=== PATIENT | male | born 1970 | race Caucasian/White ===

== ENCOUNTER 2018-07-07 20:10 | Observation (INO) | payer OTHER ==
[2018-07-07 20:21] VITALS: BMI 35.0
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
[2018-07-07] MEDS ORDERED: ASPIRIN 81 MG CHEWABLE TABLETS PO ONE (21:08)
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
[2018-07-07] MEDS ORDERED: ASPIRIN 81 MG CHEWABLE TABLETS ONE (22:11)
[2018-07-07 22:18] LABS: BASO % 0.4 % (0-2.0); EOS % 2.7 % (0-4.5); HEMATOCRIT 43.9 % (35.4-49); HEMOGLOBIN 15.1 GM/dL (11.7-16.9); LYMPH % 20.5 % (8-40); MCH 31.4 pg (25.7-33.7); MCHC 34.4 g/dl (32.0-35.9); MEAN CELL VOLUME 91.3 fl (80-96); MEAN PLT VOLUME 9.5 fl (7.5-11.1); MONO % 10.1 % (3.8-10.2); NEUT % 66.3 % (42.8-82.8); PLATELET COUNT 255 K/MM3 (134-434); RBC 4.81 M/mm3 (4.00-5.60); WHITE BLOOD COUNT 9.9 K/mm3 (4.0-10.0)
[2018-07-07 22:29] LABS: PROTHROMBIN TIME (PATIENT) 11.8 SEC (9.7-13.0)
[2018-07-07 22:31] LABS: ACTIVATED PTT 32.9 SECONDS (25.2-36.5)
[2018-07-07] MEDS ORDERED: ALBUTEROL SO4 2.5/IPRATROPIUM 0.5 INH SOL 3 ML VIAL.NEB. NEB ONE (22:33)
--- NOTE | 2018-07-07 22:38 | PDOC ---
*Physical Exam - Vital Signs Last Vital Signs Temp Pulse Resp BP Pulse Ox 98.3 F 99 H 18 165/93 99 07/07/18 20:35 07/07/18 20:35 07/07/18 20:35 07/07/18 20:35 07/07/18 20:35 ED Treatment Course - LABORATORY CBC & Chemistry Diagram: 07/07/18 21:40 07/07/18 21:40 - ADDITIONAL ORDERS Additional order review: Laboratory Results 07/07/18 21:40 PT with INR 11.80 INR 1.00 PTT (Actin FS) 32.9 07/07/18 21:40 RBC 4.81 MCV 91.3 MCHC 34.4 RDW 14.0 MPV 9.5 Neutrophils % 66.3 Lymphocytes % 20.5 Monocytes % 10.1 Eosinophils % 2.7 Basophils % 0.4 - Medications Given in the ED: ED Medications Discontinued Medications Generic Name Dose Route Start Last Admin Trade Name Freq PRN Reason Stop Dose Admin Aspirin 162 mg 07/07/18 21:08 07/07/18 22:15 Asa - PO 07/07/18 21:09 162 mg ONCE ONE Administration Medical Decision Making - Medical Decision Making 07/07/18 22:36 48 year old male with PMH HTN, asthma, cigarette dependence presented to ED for chest pain since 1000 today. Initial Vital Signs Temp Pulse Resp BP Pulse Ox 98.3 F 99 H 18 165/93 99 07/07/18 20:16 07/07/18 20:16 07/07/18 20:16 07/07/18 20:16 07/07/18 20:16 Pt arrived afebrile, borderline tachycardic, no tachypnea, mildly hypertensive, no hypoxia on room air. EKG performed at 2016: rate 96, regular rhythm, normal axis, incomplete RBBB, QTC 452, no acute ST changes. Medications ordered: ASA, duonebs CBC WBC 9.9 K/mm3 (4.0-10.0) 07/07/18 21:40 RBC 4.81 M/mm3 (4.00-5.60) 07/07/18 21:40 Hgb 15.1 GM/dL (11.7-16.9) 07/07/18 21:40 Hct 43.9 % (35.4-49) 07/07/18 21:40 MCV 91.3 fl (80-96) 07/07/18 21:40 MCH 31.4 pg (25.7-33.7) 07/07/18 21:40 MCHC 34.4 g/dl (32.0-35.9) 07/07/18 21:40 RDW 14.0 % (11.9-15.9) 07/07/18 21:40 Plt Count 255 K/MM3 (134-434) 07/07/18 21:40 MPV 9.5 fl (7.5-11.1) 07/07/18 21:40 Absolute Neuts (auto) 6.6 K/mm3 (1.5-8.0) 07/07/18 21:40 Neutrophils % 66.3 % (42.8-82.8) 07/07/18 21:40 Lymphocytes % 20.5 % (8-40) 07/07/18 21:40 Monocytes % 10.1 % (3.8-10.2) 07/07/18 21:40 Eosinophils % 2.7 % (0-4.5) 07/07/18 21:40 Basophils % 0.4 % (0-2.0) 07/07/18 21:40 Nucleated RBC % 0 % (0-0) 07/07/18 21:40 No leukocytosis. No anemia. Pending CMP, troponin, repeat troponin/EKG. 07/07/18 22:43 CMP Sodium 138 mmol/L (136-145) 07/07/18 21:40 Potassium 4.4 mmol/L (3.5-5.1) 07/07/18 21:40 Chloride 105 mmol/L (98-107) 07/07/18 21:40 Carbon Dioxide 27 mmol/L (21-32) 07/07/18 21:40 Anion Gap 6 MMOL/L (8-16) L 07/07/18 21:40 BUN 20 mg/dL (7-18) H 07/07/18 21:40 Creatinine 1.0 mg/dL (0.55-1.3) 07/07/18 21:40 Creat Clearance w eGFR > 60 (>60) 07/07/18 21:40 Random Glucose 89 mg/dL (74-106) 07/07/18 21:40 Calcium 8.6 mg/dL (8.5-10.1) 07/07/18 21:40 Total Bilirubin 0.3 mg/dL (0.2-1) 07/07/18 21:40 AST 16 U/L (15-37) 07/07/18 21:40 ALT 22 U/L (13-61) 07/07/18 21:40 Alkaline Phosphatase 88 U/L (45-117) 07/07/18 21:40 Creatine Kinase 189 IU/L (26-308) 07/07/18 21:40 Troponin I < 0.02 ng/ml (0.00-0.05) 07/07/18 21:40 Total Protein 7.0 g/dl (6.4-8.2) 07/07/18 21:40 Albumin 3.7 g/dl (3.4-5.0) 07/07/18 21:40 Initial troponin normal. No electrolyte abnormalities. No SRINATH. No transaminitis. 07/07/18 23:19 CXR: no infiltrate. no pneumothorax. no cardiomegaly. sharp costophrenic angles. 07/07/18 23:58 Pt reported chest pain improved from 6/10 to 4/10. 07/08/18 02:06 Second troponin negative. *DC/Admit/Observation/Transfer Diagnosis at time of Disposition: Chest pain - Discharge Dispostion Condition at time of disposition: Stable Decision to Admit order: Yes - Referrals - Patient Instructions - Post Discharge Activity
[2018-07-07 22:41] LABS: ALBUMIN 3.7 g/dl (3.4-5.0); ALK PHOS 88 U/L (45-117); ANION GAP 6 MMOL/L (8-16); BILIRUBIN,TOTAL 0.3 mg/dL (0.2-1); BLOOD UREA NITROGEN 20 mg/dL (7-18); CALCIUM 8.6 mg/dL (8.5-10.1); CHLORIDE 105 mmol/L (98-107); CO2 27 mmol/L (21-32); GLUCOSE,RANDOM 89 mg/dL (74-106); POTASSIUM 4.4 mmol/L (3.5-5.1); SGOT/AST 16 U/L (15-37); SGPT/ALT 22 U/L (13-61); SODIUM 138 mmol/L (136-145)
[2018-07-08] MEDS ORDERED: amLODIPine BESYLATE 5 MG TABLET (FP) PO ONE (01:17)
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
[2018-07-08] MEDS ORDERED: HEPARIN NA (PORCINE) 5,000 UNITS/ML 1ML VIAL ONE ×3 (01:35→14:40)
[2018-07-08] MEDS ORDERED: amLODIPine BESYLATE 5 MG TABLET (FP) ONE ×2 (02:16→11:01)
[2018-07-08] MEDS ORDERED: ACETAMINOPHEN 325 MG TABLET (FP) ONE (03:16)
--- NOTE | 2018-07-08 03:40 | PN ---
Teaching Attending Note Name of Resident: Mckay Vela ATTENDING PHYSICIAN STATEMENT I saw and evaluated the patient. I reviewed the resident's note and discussed the case with the resident. I agree with the resident's findings and plan as documented. SUBJECTIVE: Seen and examined; please see resident note for further historical details. This is a 48 y/o male with PMH untreated HTN, obesity (BMI 35) presenting to the ER with a CC of chest pain. He had a similar episode 2 days ago. It is waxing and waning and typical in nature; no history of prior cardiac workup. Doesn't follow regularly with a doctor. In the ER he was found to have normal troponin, CBC, unremarkable BMP. EKG was not specific for any jennifer ischemic pattern. He did have an elevated BP in the ER. He has no other complaints. Will place on observation on telemetry to r/o ACS. ER calculated HEART score to be moderate risk. He did take ASA at home. 10 sys ROS done and negative aside from HPI PMH and PSH reviewed FH asked and noncontributory Socially he uses 1PPD, smokes cannabis, drinks occasionally but not daily. Does have some support. Independent in ambulation, etc. and could do a treadmill stress. Medication list reviewed with resident OBJECTIVE: VS, labs, imaging reviewed NAD, AAO, resting in bed RRR s1/2 no mgr Abdomen obese; NT ND +BS Lungs CTAB with sym exp CN2-12 wnl, no fnd Normal mood, appropriate behavior Labs show negative troponin, unremarkable CBC, BMP EKG shows what appears to be a new incomplete RBBB with overall unremarkable ST- T segments; NSR, intervals reviewed Imaging reviewed; unremarkable ASSESSMENT AND PLAN: Mr. Cr is a 48 y/o male presenting with chest pain; he is moderate risk and would have appreciable pretest probability for stress testing. 1) Chest Pain in Adult -Moderately suspicious story, multiple risk factors including active tobacco user. Will trend troponin x3, monitor on tele, obtain exercise stress test, and if the test is abnormal plan to consult cardiology. Starting him on [id number] PO QD for primary prevention -Obtain A1c, TSH, Lipids to fully risk stratify 2) Uncontrolled HTN -Placing on Amlodipine 5 and continuing QD in accordance with GDMT. 3) Tobacco Abuse -Switchboard Troubleshooter prior to DC 4) Cannabis Abuse -Switchboard Troubleshooter prior to DC 5) Obesity (BMI 35.1) -Switchboard Troubleshooter regarding weight loss prior to DC. 6) RBBB (incomplete) FENA -KVO when NPO -PRN replete -Stress test protocol -OOBTC until post stress Full Code
[2018-07-08 05:44] LABS: BASO % 0.4 % (0-2.0); EOS % 2.6 % (0-4.5); HEMATOCRIT 44.3 % (35.4-49); HEMOGLOBIN 14.6 GM/dL (11.7-16.9); LYMPH % 22.7 % (8-40); MCHC 32.9 g/dl (32.0-35.9); MEAN CELL VOLUME 91.3 fl (80-96); NEUT % 64.3 % (42.8-82.8); PLATELET COUNT 221 K/MM3 (134-434); RBC 4.85 M/mm3 (4.00-5.60); RDW 13.7 % (11.9-15.9); WHITE BLOOD COUNT 9.2 K/mm3 (4.0-10.0)
[2018-07-08 06:26] LABS: ANION GAP 7 MMOL/L (8-16); BLOOD UREA NITROGEN 17 mg/dL (7-18); CALCIUM 8.4 mg/dL (8.5-10.1); CHLORIDE 106 mmol/L (98-107); CHOLESTEROL 149 mg/dL (50-200); CO2 26 mmol/L (21-32); CREATININE 0.9 mg/dL (0.55-1.3); GLUCOSE,RANDOM 92 mg/dL (74-106); HDL CHOLESTEROL 46 mg/dL (40-60); MAGNESIUM 2.2 mg/dL (1.8-2.4); PHOSPHOROUS 3.4 mg/dL (2.5-4.9); POTASSIUM 3.7 mmol/L (3.5-5.1); SODIUM 139 mmol/L (136-145); TRIGLYCERIDES 106 mg/dL (0-150)
[2018-07-08] MEDS: HEPARIN NA (PORCINE) 5,000 UNITS/ML 1ML VIAL SQ SCH ×2 (06:40→14:42)
[2018-07-08 08:55] LABS: INR 1.08 (0.83-1.09); PROTHROMBIN TIME (PATIENT) 12.7 SEC (9.7-13.0)
[2018-07-08 08:57] LABS: ACTIVATED PTT 31.5 SECONDS (25.2-36.5)
--- NOTE | 2018-07-08 09:45 | EKG ---
Test Reason : Blood Pressure : / mmHG Vent. Rate : 082 BPM Atrial Rate : 082 BPM P-R Int : 154 ms QRS Dur : 112 ms QT Int : 398 ms P-R-T Axes : 055 035 033 degrees QTc Int : 464 ms NORMAL SINUS RHYTHM INCOMPLETE RIGHT BUNDLE BRANCH BLOCK BORDERLINE ECG WHEN COMPARED WITH ECG OF 07-JUL-2018 23:00, NO SIGNIFICANT CHANGE WAS FOUND Confirmed by PRICILLA RODRIGUEZ MD ([id number]) on 07/08/2018 9:45:13 AM Referred By: Confirmed By:PRICILLA RODRIGUEZ MD
--- NOTE | 2018-07-08 09:50 | EKG ---
Test Reason : Blood Pressure : / mmHG Vent. Rate : 076 BPM Atrial Rate : 076 BPM P-R Int : 156 ms QRS Dur : 108 ms QT Int : 402 ms P-R-T Axes : 034 -03 014 degrees QTc Int : 452 ms NORMAL SINUS RHYTHM INCOMPLETE RIGHT BUNDLE BRANCH BLOCK BORDERLINE ECG WHEN COMPARED WITH ECG OF 03-JUN-2014 13:32, NO SIGNIFICANT CHANGE WAS FOUND Confirmed by PRICILLA RODRIGUEZ MD ([id number]) on 07/08/2018 9:50:13 AM Referred By: Confirmed By:PRICILLA RODRIGUEZ MD
--- NOTE | 2018-07-08 09:50 | EKG ---
Test Reason : Blood Pressure : / mmHG Vent. Rate : 075 BPM Atrial Rate : 075 BPM P-R Int : 154 ms QRS Dur : 116 ms QT Int : 410 ms P-R-T Axes : 053 007 010 degrees QTc Int : 457 ms NORMAL SINUS RHYTHM INCOMPLETE RIGHT BUNDLE BRANCH BLOCK BORDERLINE ECG WHEN COMPARED WITH ECG OF 08-JUL-2018 01:41, NO SIGNIFICANT CHANGE WAS FOUND Confirmed by JENNIFER GAGNON, PRICILLA ([id number]) on 07/08/2018 9:49:46 AM Referred By: JESS LOPEZ Confirmed By:PRICILLA RODRIGUEZ MD
[2018-07-08] MEDS ORDERED: amLODIPine BESYLATE 5 MG TABLET (FP) PO SCH (10:00)
[2018-07-08] MEDS ORDERED: ASPIRIN 81 MG CHEWABLE TABLETS PO SCH (10:00)
[2018-07-08] MEDS ORDERED: ASPIRIN 81 MG CHEWABLE TABLETS ONE (11:01)
[2018-07-08 12:09] LABS: COCAINE, UR NEGATIVE ng/ml (CUTOFF=300); METHADONE, UR NEGATIVE ng/ml (CUTOFF=300); OPIATES, URI NEGATIVE ng/ml (CUTOFF=300); PHENCYCLIDINE,URINE NEGATIVE ng/ml (CUTOFF=25); URINE AMPHETAMINES NEGATIVE ng/ml (CUTOFF=500); URINE BARBITURATES NEGATIVE ng/ml (CUTOFF=200); URINE BENZODIAZEPINES NEGATIVE ng/ml (CUTOFF=200)
--- NOTE | 2018-07-08 14:12 | ECHO ---
Name: WALI SCHILLING Exam:Adult Echocardiogram Study Date: 07/08/2018 10:43 AM Age: 48 yrs Reason For Study: LVEF Height: 74 in Weight: 273 lb BSA: 2.5 m2 MMode/2D Measurements & Calculations IVSd: 0.93 cm Ao root diam: 3.5 cm LVIDd: 6.0 cm LA dimension: 3.3 cm LVIDs: 3.4 cm LVPWd: 0.88 cm EDV(Teich): 182.1 ml ESV(Teich): 48.1 ml Doppler Measurements & Calculations MV E max robert: 92.2 cm/sec TR max robert: 215.8 cm/sec MV A max robert: 110.6 cm/sec TR max P.6 mmHg MV E/A: 0.83 MV dec time: 0.18 sec Med Peak E' Robert: 7.3 cm/sec PI Vmax: 123.5 cm/sec Med E/e': 12.6 Lat Peak E' Robert: 11.0 cm/sec Lat E/e': 8.4 Procedure A two-dimensional transthoracic echocardiogram with color flow and Doppler was performed. The study w as technically difficult with many images being suboptimal in quality. Left Ventricle The left ventricle is mildly dilated. The left ventricle is not well visualized. The left ventricular ejection fraction is normal. E/A reversal consistent with but not diagnostic of poor LV compliance. Regional w all motion abnormalities cannot be excluded due to limited visualization. Right Ventricle The right ventricle is normal in size and function. Atria Normal left and right atrial size and function. Mitral Valve There is mild mitral valve thickening. There is no mitral valve stenosis. There is trace mitral regur gitation. Tricuspid Valve There is mild tricuspid valve thickening. There is no tricuspid stenosis. There is moderate tricuspid regurgitation. Right ventricular systolic pressure is normal. Aortic Valve The aortic valve is normal in structure and function. No hemodynamically significant valvular aortic stenosis. No aortic regurgitation is present. Pulmonic Valve The pulmonic valve is not well visualized. Great Vessels The aortic root is normal size. Pericardium/Pleura There is no pericardial effusion. Interpretation Summary The left ventricle is mildly dilated. The left ventricular ejection fraction is normal. There is moderate tricuspid regurgitation. The study was technically difficult with many images being suboptimal in quality. Regional wall motion abnormalities cannot be excluded due to limited visualization. The left ventricle is not well visualized. E/A reversal consistent with but not diagnostic of poor LV compliance There is trace mitral regurgitation. Right ventricular systolic pressure is normal. MD Andreas Ramos 07/08/2018 02:12 PM
--- NOTE | 2018-07-08 14:32 | TRE ---
Protocol Name : ANUPAM Max Work Load (METS*10) : 105 Time In Exercise Phase : 00:09:12 Max. Systolic BP : 178 mmHg Max Diastolic BP : 88 mmHg Max Heart Rate : 148 BPM Max Predicted Heart Rate : 171 BPM Attending Physician : DR. RODRIGUEZ Reason For Termination : Target Heart Rate Achieved Reason for Test : ELAL CAD Stress Protocol : ANUPAM Rest HR : 76 BPM PeakEx METs : 10.5 METS Recovery ECG Response (OLD) : Diagnosis : baseline ekg -nsr incomplete rbb at pek exercise no diagnostic st t wave changes no arrhythmias , no ischemic symptoms. Negative stress test. Confirmed by JENNIFER GAGNON, PRICILLA ([id number]) on 07/08/2018 2:31:45 PM
[2018-07-08 14:39] VITALS: BP 151/105; PULSE 97; TEMP 97.6
--- NOTE | 2018-07-08 15:19 | PN ---
Teaching Attending Note Name of Resident: Brandon Orr ATTENDING PHYSICIAN STATEMENT I saw and evaluated the patient. I reviewed the resident's note and discussed the case with the resident. I agree with the resident's findings and plan as documented. SUBJECTIVE: Mr Cr is without complaint today. Says chest pain has resolved. No sob or n/v. Asking if he can go home OBJECTIVE: Gen: nad Pulm: ctab w/o w/r/r CV: rrr w/o m/r/g Abd: +bs, s/nt/nd Ext: no c/c/e ASSESSMENT AND PLAN: -chest pain resolved -EKG unchanged from last night, no signs of ACS -cardiac enzymes x3 negative -stress test normal -ECHO showing minor wall thickening and some tricuspid regurg but no signs of wall motion abnormality -will start HCTZ for blood pressure control -safe for discharge home Problem List - Problems (1) HTN (hypertension) Code(s): I10 - ESSENTIAL (PRIMARY) HYPERTENSION (2) Chest pain Code(s): R07.9 - CHEST PAIN, UNSPECIFIED
--- NOTE | 2018-07-08 15:26 | DS ---
Physical Exam: SUBJECTIVE: Patient seen and examined at bedside. No new complaints. No overnight events. His chest pain has completely resolved. Feels well overall. Eager to go home. Denies CP,CASANOVA,SOB, palpitations, abdominal pain, nausea or vomiting. OBJECTIVE: Vital Signs Period Temp Pulse Resp BP Sys/Ibanez Pulse Ox Last 24 Hr 97.5 F-98.4 F 71-99 16-18 141-165/81-105 97-100 PHYSICAL EXAM GENERAL: A&Ox3, NAD HEAD: NC/AT EYES: PERRLA, EOMI EARS, NOSE, THROAT: MMM NECK: Normal range of motion, supple without lymphadenopathy, JVD, or masses. LUNGS: CTA b/l HEART: RRR no m/r/g ABDOMEN: +bs, soft, NT, ND, obese, 8cm longitudinal surgical scar at midline LOWER EXTREMITIES: 2+ pulses, warm, well-perfused. No calf tenderness. No peripheral edema. LABS Laboratory Results - last 24 hr 07/07/18 07/07/18 07/07/18 21:40 21:40 21:40 WBC 9.9 RBC 4.81 Hgb 15.1 Hct 43.9 MCV 91.3 MCH 31.4 MCHC 34.4 RDW 14.0 Plt Count 255 MPV 9.5 Absolute Neuts (auto) 6.6 Neutrophils % 66.3 Lymphocytes % 20.5 Monocytes % 10.1 Eosinophils % 2.7 Basophils % 0.4 Nucleated RBC % 0 PT with INR 11.80 INR 1.00 PTT (Actin FS) 32.9 Sodium 138 Potassium 4.4 Chloride 105 Carbon Dioxide 27 Anion Gap 6 L BUN 20 H Creatinine 1.0 Creat Clearance w eGFR > 60 Random Glucose 89 Hemoglobin A1c % Calcium 8.6 Phosphorus Magnesium Total Bilirubin 0.3 AST 16 ALT 22 Alkaline Phosphatase 88 Creatine Kinase 189 Creatine Kinase Index 1.0 CK-MB (CK-2) 2.0 Troponin I < 0.02 Total Protein 7.0 Albumin 3.7 Triglycerides Cholesterol Total LDL Cholesterol HDL Cholesterol TSH Opiates Screen Methadone Screen Barbiturate Screen Phencyclidine Screen Ur Amphetamines Screen MDMA (Ecstasy) Screen Benzodiazepines Screen Cocaine Screen U Marijuana (THC) Screen Blood Type Antibody Screen 07/07/18 07/08/18 07/08/18 21:40 01:17 05:20 WBC RBC Hgb Hct MCV MCH MCHC RDW Plt Count MPV Absolute Neuts (auto) Neutrophils % Lymphocytes % Monocytes % Eosinophils % Basophils % Nucleated RBC % PT with INR INR PTT (Actin FS) Sodium Potassium Chloride Carbon Dioxide Anion Gap BUN Creatinine Creat Clearance w eGFR Random Glucose Hemoglobin A1c % Calcium Phosphorus Magnesium Total Bilirubin AST ALT Alkaline Phosphatase Creatine Kinase Creatine Kinase Index CK-MB (CK-2) Troponin I < 0.02 < 0.02 Total Protein Albumin Triglycerides Cholesterol Total LDL Cholesterol HDL Cholesterol TSH Opiates Screen Methadone Screen Barbiturate Screen Phencyclidine Screen Ur Amphetamines Screen MDMA (Ecstasy) Screen Benzodiazepines Screen Cocaine Screen U Marijuana (THC) Screen Blood Type O POSITIVE Antibody Screen Negative 07/08/18 07/08/18 07/08/18 05:20 05:20 05:20 WBC 9.2 RBC 4.85 Hgb 14.6 Hct 44.3 MCV 91.3 MCH 30.0 MCHC 32.9 RDW 13.7 Plt Count 221 MPV 9.0 Absolute Neuts (auto) 5.9 Neutrophils % 64.3 Lymphocytes % 22.7 Monocytes % 10.0 Eosinophils % 2.6 Basophils % 0.4 Nucleated RBC % 0 PT with INR INR PTT (Actin FS) Sodium 139 Potassium 3.7 Chloride 106 Carbon Dioxide 26 Anion Gap 7 L BUN 17 Creatinine 0.9 Creat Clearance w eGFR > 60 Random Glucose 92 Hemoglobin A1c % Calcium 8.4 L Phosphorus 3.4 Magnesium 2.2 Total Bilirubin AST ALT Alkaline Phosphatase Creatine Kinase Creatine Kinase Index CK-MB (CK-2) Troponin I Total Protein Albumin Triglycerides 106 Cancelled Cholesterol 149 Cancelled Total LDL Cholesterol 89 Cancelled HDL Cholesterol 46 Cancelled TSH 1.92 Opiates Screen Methadone Screen Barbiturate Screen Phencyclidine Screen Ur Amphetamines Screen MDMA (Ecstasy) Screen Benzodiazepines Screen Cocaine Screen U Marijuana (THC) Screen Blood Type Antibody Screen 07/08/18 07/08/18 07/08/18 08:10 08:10 08:10 WBC RBC Hgb Hct MCV MCH MCHC RDW Plt Count MPV Absolute Neuts (auto) Neutrophils % Lymphocytes % Monocytes % Eosinophils % Basophils % Nucleated RBC % PT with INR 12.70 INR 1.08 PTT (Actin FS) 31.5 Sodium Potassium Chloride Carbon Dioxide Anion Gap BUN Creatinine Creat Clearance w eGFR Random Glucose Hemoglobin A1c % 5.9 Calcium Phosphorus Magnesium Total Bilirubin AST ALT Alkaline Phosphatase Creatine Kinase 191 Creatine Kinase Index 0.7 CK-MB (CK-2) 1.4 Troponin I < 0.02 Total Protein Albumin Triglycerides Cholesterol Total LDL Cholesterol HDL Cholesterol TSH Opiates Screen Methadone Screen Barbiturate Screen Phencyclidine Screen Ur Amphetamines Screen MDMA (Ecstasy) Screen Benzodiazepines Screen Cocaine Screen U Marijuana (THC) Screen Blood Type Antibody Screen 07/08/18 10:19 WBC RBC Hgb Hct MCV MCH MCHC RDW Plt Count MPV Absolute Neuts (auto) Neutrophils % Lymphocytes % Monocytes % Eosinophils % Basophils % Nucleated RBC % PT with INR INR PTT (Actin FS) Sodium Potassium Chloride Carbon Dioxide Anion Gap BUN Creatinine Creat Clearance w eGFR Random Glucose Hemoglobin A1c % Calcium Phosphorus Magnesium Total Bilirubin AST ALT Alkaline Phosphatase Creatine Kinase Creatine Kinase Index CK-MB (CK-2) Troponin I Total Protein Albumin Triglycerides Cholesterol Total LDL Cholesterol HDL Cholesterol TSH Opiates Screen Negative Methadone Screen Negative Barbiturate Screen Negative Phencyclidine Screen Negative Ur Amphetamines Screen Negative MDMA (Ecstasy) Screen Negative Benzodiazepines Screen Negative Cocaine Screen Negative U Marijuana (THC) Screen Positive A* Blood Type Antibody Screen STRESS TEST: baseline ekg -nsr incomplete rbb at peak exercise no diagnostic st t wave changes no arrhythmias , no ischemic symptoms. Negative stress test. HOSPITAL COURSE: 48 y/o male with PMHx untreated HTN, obesity (BMI 35) presented to the ER with a CC of chest pain. He was placed on observation with continues cardiac monitoring. Troponin I was negative on 3 separate occasions. Lipid panel, TSH and HgbA1C done all WNL. Patient was sent for exercise stress test which was negative as mentioned above. Echo was done and showed normal LV function with mod TR. In terms of his blood pressure he will be started on HCTZ 12.5mg. He is instructed to follow up with his primary doctor in one week. He is stable for discharge home . Date of Admission:07/08/18 Date of Discharge: 07/08/18 Minutes to complete discharge: 33 Discharge Summary Reason For Visit: CHEST PAIN Current Active Problems Chest pain (Acute) HTN (hypertension) (Acute) Condition: Stable - Instructions Diet, Activity, Other Instructions: You have been seen and treated for high blood pressure and chest pain. Your stress test and blood test were negative for any possible blockage. You will be started on a new medication for blood pressure control; hydrochlorothiazide 12.5 mg, one tablet taken daily. You can resume a heart healthy diet (DASH). You are encouraged to lose weight with diet and lifestyle modifications. Try to reduce the amount of salt in your diet to 2 grams daily. Increase your activity as tolerated. Please make an appointment to see your primary doctor Dr. Pedro in one week. If you experience increased/continued chest pain, fevers, or chills please return to ER immediately. Referrals: Sultan Pedro MD [Non Staff, Medical] - Disposition: HOME - Home Medications Comprehensive Discharge Medication List: Ambulatory Orders Albuterol Sulfate Inhaler - [Ventolin Hfa Inhaler -] 1 puff IH PRN 07/07/18 This patient is new to me today: Yes Date on this admission: 07/08/18 Emergency Visit: Yes ED Registration Date: 07/08/18 Care time: The patient presented to the Emergency Department on the above date and was hospitalized for further evaluation of their emergent condition. Critical Care patient: No - Discharge Referral Referred to [facility] No
--- NOTE | 2018-07-12 12:32 | EKG ---
Test Reason : Blood Pressure : / mmHG Vent. Rate : 096 BPM Atrial Rate : 096 BPM P-R Int : 144 ms QRS Dur : 106 ms QT Int : 358 ms P-R-T Axes : 030 -07 023 degrees QTc Int : 452 ms NORMAL SINUS RHYTHM INCOMPLETE RIGHT BUNDLE BRANCH BLOCK BORDERLINE ECG WHEN COMPARED WITH ECG OF 03-JUN-2014 13:32, NO SIGNIFICANT CHANGE WAS FOUND Confirmed by INDIGO TATE MD ([id number]) on 07/12/2018 12:32:16 PM Referred By: Confirmed By:INDIGO TATE MD
== END 2018-07-08 16:07 | disposition home or self-care (01) ==
LOC: JER 20:10 → JERBED 07-08 01:24
PROVIDERS: ADMIT Internal Medicine; ATTEND Internal Medicine
PROC: 3E013GC Introduction of Other Therapeutic Substance into Subcutaneous Tissue, Percutaneous Approach (ICD-10-PCS; principal; 2018-07-08)
DX: R07.9 Chest pain, unspecified (principal); I10 Essential (primary) hypertension; F17.210 Nicotine dependence, cigarettes, uncomplicated; F12.10 Cannabis abuse, uncomplicated; E66.9 Obesity, unspecified; Z68.35 Body mass index [BMI] 35.0-35.9, adult; I45.10 Unspecified right bundle-branch block; Z87.09 Personal history of other diseases of the respiratory system
CPT/HCPCS: 36415; 71046-TC-FY; 80048; 80053; 80061; 80307; 82550; 82553; 83036; 83721; 83735; 84100; 84443; 84484; 85025; 85610; 85730; 86850; 86900; 86901; 93005; 93010; 93017; 93018; 93306-TC; 96372; 99285-25; G0378; J1644

== ENCOUNTER 2018-07-29 20:39 | Emergency (ER) | payer OTHER ==
[2018-07-29] MEDS ORDERED: FAMOTIDINE 20 MG/50 ML IVPB 20 MG/50 ML MG IVPB ONE ×2 (21:16→21:43)
[2018-07-29] MEDS ORDERED: methylPREDNISolone NA SUCC 125 MG/2 ML VIAL IVPUSH ONE (21:16)
--- NOTE | 2018-07-29 21:16 | PDOC ---
Rapid Medical Evaluation Time Seen by Provider: 07/29/18 21:14 Medical Evaluation: Allergies Allergy/AdvReac Type Severity Reaction Status Date / Time No Known Drug Allergies Allergy Verified 07/07/18 20:21 07/29/18 21:14 I have performed a brief in-person evaluation of this patient. The patient presents with a chief complaint of: facial swelling x 5 days- started HCTZ 2 weeks ago Pertinent physical exam findings: No stridor. No drooling. Speaking full sentences. Hoarseness noted. I have ordered the following: pepcid, benadryl, solumedrol The patient will proceed to the ED for further evaluation. Discharge Disposition - Diagnosis Facial swelling - Referrals - Patient Instructions - Post Discharge Activity
[2018-07-29 21:24] VITALS: TEMP 98; BMI 77.0
[2018-07-29] MEDS ORDERED: methylPREDNISolone NA SUCC 125 MG/2 ML VIAL ONE ×2 (21:43)
--- NOTE | 2018-07-29 21:46 | PDOC ---
History of Present Illness - General Chief Complaint: Allergic Reaction Stated Complaint: ALLERGIC REACTION Time Seen by Provider: 07/29/18 21:14 - History of Present Illness Initial Comments: 07/29/18 21:44 48 yo M with h/o HTN, asthma, obesity, who p/w facial swelling and redness. Patient reports diffuse facial redness, and swelling beginning (). Reports increased swelling and redness, with diffuse rash on posterior neck, face, abdomen. Has attempted topical Diphenhydramine and warm compresses on face with absent relief. Denies dysphagia, drooling, neck stiffness, eye swelling, vision change, cough, wheezing. Recently started HCTZ x 2 weeks ago. Denies contact exposures to new detergents, lotions, emoilents, soaps, clothing , bedding. Patient denies N/V, F,C, CP, SOB, urinary complaints, abdominal pain, diarrhea, constipation, lightheadedness, weakness, sensory changes. PMHx: as noted above ROS: as noted SHx: Denies IVDA, + Tobacco, THC use. Allergies:HCTZ Past History - Past Medical History Allergies/Adverse Reactions: Allergies Allergy/AdvReac Type Severity Reaction Status Date / Time No Known Drug Allergies Allergy Verified 07/07/18 20:21 Home Medications: Ambulatory Orders Albuterol Sulfate Inhaler - [Ventolin HFA Inhaler -] 1 puff IH PRN 07/07/18 Hydrochlorothiazide [Hctz -] 12.5 mg PO DAILY #30 cap 07/08/18 Prednisone [Prednisone 50 MG TABLETS] 50 mg PO DAILY #5 tablet 07/30/18 Ranitidine [Zantac -] 150 mg PO BID #14 tablet 07/30/18 Anemia: No Asthma: Yes Cancer: No Cardiac Disorders: No CVA: No COPD: No CHF: No Dementia: No Diabetes: No GI Disorders: No 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) HTN: Yes Hypercholesterolemia: No Liver Disease: No Seizures: No Thyroid Disease: No - Immunization History Immunization Up to Date: No - Suicide/Smoking/Psychosocial Hx Smoking History: Current every day smoker Have you smoked in the past 12 months: Yes Number of Cigarettes Smoked Daily: 5 If you are a former smoker, when did you quit?: t-30 Information on smoking cessation initiated: No 'Breaking Loose' booklet given: 06/03/14 Hx Alcohol Use: Yes Drug/Substance Use Hx: Yes (Derik) Substance Use Type: None Hx Substance Use Treatment: No Review of Systems - Review of Systems Comments:: 07/29/18 21:45 GENERAL/CONSTITUTIONAL: No fever or chills. No weakness. HEAD, EYES, EARS, NOSE AND THROAT: No change in vision. No ear pain or discharge. No sore throat. CARDIOVASCULAR: No chest pain or shortness of breath RESPIRATORY: No cough, wheezing, or hemoptysis. GASTROINTESTINAL: No nausea, vomiting, diarrhea or constipation. GENITOURINARY: No dysuria, frequency, or change in urination. MUSCULOSKELETAL: No joint or muscle swelling or pain. No neck or back pain. SKIN: + Rash, facial redness/swelling NEUROLOGIC: No headache, vertigo, loss of consciousness, or change in strength/ sensation. ENDOCRINE: No increased thirst. No abnormal weight change HEMATOLOGIC/LYMPHATIC: No anemia, easy bleeding, or history of blood clots. ALLERGIC/IMMUNOLOGIC: No hives or skin allergy. *Physical Exam - Vital Signs Last Vital Signs Temp Pulse Resp BP Pulse Ox 98 F 91 H 20 167/114 H 100 07/29/18 21:21 07/29/18 21:21 07/29/18 21:21 07/29/18 21:21 07/29/18 21:21 - Physical Exam Comments: 07/29/18 21:45 GENERAL: Awake, alert, and fully oriented, in no acute distress HEAD: + Facial erythema, warmth, ttp, and urticaria, with Zone II neck swelling extending from mandible to laryngeal cartilage, with dry, yellow crusted, scaly , lesions on inferior face. No signs of trauma, normocephalic, atraumatic EYES: PERRLA, EOMI, sclera anicteric, conjunctiva clear ENT: Auricles normal inspection, hearing grossly normal, nares patent, oropharynx clear without exudates. Moist mucosa NECK: Normal ROM, supple, no lymphadenopathy, JVD, or masses LUNGS: No distress, speaks full sentences, clear to auscultation bilaterally HEART: Regular rate and rhythm, normal S1 and S2, no murmurs, rubs or gallops, peripheral pulses normal and equal bilaterally. ABDOMEN: Soft, nontender, normoactive bowel sounds. No guarding, no rebound. No masses. NEg CVA ttp. EXTREMITIES : Normal inspection, Normal range of motion, no edema. No clubbing or cyanosis. NEUROLOGICAL: Cranial nerves II through XII grossly intact. Normal speech, normal gait, no focal sensorimotor deficits SKIN: Warm, Dry, with diffuse urticaria on face, trunk, neck, abdomen. Moderate Sedation - Procedure Monitoring Vital Signs: Procedure Monitoring Vital Signs Temperature 98 F 07/29/18 21:21 Pulse Rate 91 H 07/29/18 21:21 Respiratory Rate 20 07/29/18 21:21 Blood Pressure 167/114 H 07/29/18 21:21 O2 Sat by Pulse Oximetry (%) 100 07/29/18 21:21 ED Treatment Course - LABORATORY CBC & Chemistry Diagram: 07/30/18 00:47 07/30/18 00:47 Medical Decision Making - Medical Decision Making 07/29/18 22:09 48 yo M with h/o HTN, obesity, asthma who p/w facial swelling and redness. BP 167/114, HR 91, vitals otherwise wnl, AF. + Facial erythema, and urticaria, with Zone II neck swelling extending from mandible to laryngeal cartilage. No edema in floor of mouth. Will consider acute allergic reaction vs. facial cellulits, vs. ross angina. No evidence of anaphylaxis. Absent stridor, wheezing, cough, abdominal pain, diarrhea, hypotension, syncope. Patient arrives from [facility] after receiving Diphenhydramine, Methylprednisilone, Famotidine. ED Course: 07/29/18 22:15 CBC,CMP,LA, BCx 07/30/18 01:59 CBC,CMP: Unremarkable 07/30/18 02:12 Patient facial swelling mildly improved. VSS/wnl, denies resp difficulty, mucosal swelling, stridor/wheezing Sent Ranitidine, Prednisone to pharmacy Advised to f/u with PMD and dermatology Stable for d/c with return precautions. *DC/Admit/Observation/Transfer Diagnosis at time of Disposition: Facial swelling - Prescriptions Prescriptions: Prednisone [Prednisone 50 MG TABLETS] 50 mg PO DAILY #5 tablet Ranitidine [Zantac -] 150 mg PO BID #14 tablet - Referrals Referrals: ON STAFF,NOT [Primary Care Provider] - Ana Lilia Kay MD [Staff Physician] - - Patient Instructions Printed Discharge Instructions: DI for Adverse Drug Reaction -- Allergic Additional Instructions: Please return to the emergency department with any new or worsening symptoms or concerns. Please follow up with your primary care physician and dermatology within 72 hours. Please take Ranitidine two times a day, and Prednisone daily for 5 days. - Post Discharge Activity - Attestations Physician Attestion: 07/29/18 21:45 I attest to the information provided in this note.
[2018-07-30 01:24] LABS: BASO % 0.1 % (0-2.0); EOS % 2.3 % (0-4.5); HEMATOCRIT 44.5 % (35.4-49); HEMOGLOBIN 15.5 GM/dL (11.7-16.9); LYMPH % 7.3 % (8-40); MCH 31.4 pg (25.7-33.7); MCHC 34.8 g/dl (32.0-35.9); MEAN CELL VOLUME 90.2 fl (80-96); MEAN PLT VOLUME 9.6 fl (7.5-11.1); MONO % 2.4 % (3.8-10.2); NEUT % 87.9 % (42.8-82.8); PLATELET COUNT 249 K/MM3 (134-434); RBC 4.93 M/mm3 (4.00-5.60); WHITE BLOOD COUNT 10.9 K/mm3 (4.0-10.0)
[2018-07-30 01:40] LABS: ALBUMIN 3.8 g/dl (3.4-5.0); ALK PHOS 84 U/L (45-117); ANION GAP 9 MMOL/L (8-16); BILIRUBIN,TOTAL 0.5 mg/dL (0.2-1); BLOOD UREA NITROGEN 17 mg/dL (7-18); CALCIUM 8.4 mg/dL (8.5-10.1); CHLORIDE 105 mmol/L (98-107); CO2 23 mmol/L (21-32); GLUCOSE,RANDOM 136 mg/dL (74-106); POTASSIUM 4.2 mmol/L (3.5-5.1); SGOT/AST 15 U/L (15-37); SGPT/ALT 22 U/L (13-61); SODIUM 137 mmol/L (136-145); TOT PROT 7.1 g/dl (6.4-8.2)
[2018-07-30 02:56] VITALS: BP 162/88; PULSE 88
--- NOTE | 2018-07-30 06:38 | PDOC ---
Attending Attestation - Resident Resident Name: Alcides Segundoson - ED Attending Attestation I have performed the following: I have examined & evaluated the patient, The case was reviewed & discussed with the resident, I agree w/resident's findings & plan, Exceptions are as noted - HPI HPI: 07/30/18 06:34 48yoM presnets w/ facial rash, worstening with topical benadryl use. Started as erythema and itching to chin area and has spread around face and down onto trunk. Area covered by archuleta has become thick with dry and cracking skin, no pus. - Physicial Exam PE: 07/30/18 06:37 NAD post OP WNL, no intraoral swelling, floor of mouth soft, mallampati grade 1 thick, dry, cracked skin to area covered by archuleta. Other areas of face with erythema are not cracking. no stridor, no wheezing. - Medical Decision Making 07/30/18 06:37 48yoM w/ itchy erythematous rash, developing a dry, cracked appearance in area of archuleta after benadryl cream use. - DC benadryl cream - switch to oral benadry and oral steroids - dermatology referral.
== END 2018-07-30 02:56 | disposition home or self-care (01) ==
LOC: JER 20:39
PROC: 3E033GC Introduction of Other Therapeutic Substance into Peripheral Vein, Percutaneous Approach (ICD-10-PCS; principal; 2018-07-29)
DX: R22.0 Localized swelling, mass and lump, head (principal); I10 Essential (primary) hypertension; J45.909 Unspecified asthma, uncomplicated; E66.9 Obesity, unspecified
CPT/HCPCS: 36415; 80053; 83605; 85025; 87040; 99282-25

== ENCOUNTER 2018-11-20 17:42 | Inpatient (IN) | payer OTHER ==
--- NOTE | 2018-11-20 18:01 | PDOC ---
Rapid Medical Evaluation Chief Complaint: Chest Pain Time Seen by Provider: 11/20/18 17:59 Medical Evaluation: Allergies Allergy/AdvReac Type Severity Reaction Status Date / Time No Known Drug Allergies Allergy Verified 07/30/18 02:55 11/20/18 17:59 I have performed a brief in-person evaluation of this patient. The patient presents with a chief complaint of: Chest pain radiating to L arm x several days. No sob, diaphoresis, n/v. Had similar pain in the past when he was dx w/ HTN per pt. Had neg stress test 07/08/[address] [facility]. H/o HTN, smoker Pertinent physical exam findings:Stable and in NAD w/ clear chest/lungs I have ordered the following:ekg/cxr/labs The patient will proceed to the ED for further evaluation. 11/20/18 18:02 Discharge Disposition - Diagnosis Chest pain Qualifiers: Chest pain type: unspecified Qualified Code(s): R07.9 - Chest pain, unspecified - Referrals - Patient Instructions - Post Discharge Activity
[2018-11-20 18:29] LABS: BASO % 0.4 % (0-2.0); EOS % 2.2 % (0-4.5); HEMATOCRIT 44.6 % (35.4-49); LYMPH % 15.2 % (8-40); MCH 30.9 pg (25.7-33.7); MCHC 33.6 g/dl (32.0-35.9); MEAN PLT VOLUME 9.3 fl (7.5-11.1); MONO % 8.3 % (3.8-10.2); NEUT % 73.9 % (42.8-82.8); PLATELET COUNT 242 K/MM3 (134-434); RBC 4.85 M/mm3 (4.00-5.60); WHITE BLOOD COUNT 11.4 K/mm3 (4.0-10.0)
[2018-11-20 19:58] LABS: ALBUMIN 3.9 g/dl (3.4-5.0); ALK PHOS 86 U/L (45-117); ANION GAP 7 MMOL/L (8-16); BILIRUBIN,TOTAL 0.5 mg/dL (0.2-1); BLOOD UREA NITROGEN 18 mg/dL (7-18); CALCIUM 8.7 mg/dL (8.5-10.1); CHLORIDE 107 mmol/L (98-107); CO2 25 mmol/L (21-32); GLUCOSE,RANDOM 100 mg/dL (74-106); POTASSIUM 4.1 mmol/L (3.5-5.1); SGOT/AST 18 U/L (15-37); SGPT/ALT 21 U/L (13-61); SODIUM 139 mmol/L (136-145); TOT PROT 7.2 g/dl (6.4-8.2)
--- NOTE | 2018-11-20 20:32 | PDOC ---
History of Present Illness - General Chief Complaint: Chest Pain Stated Complaint: CHEST PAIN Time Seen by Provider: 11/20/18 17:59 History Source: Patient Exam Limitations: No Limitations - History of Present Illness Initial Comments: 11/20/18 20:19 48 yo M with a hx of HTN and asthma presents to the emergency department with new quality chest pain that began today at 1:30 am. Per the patient, he has had chest pain center sternum with radiation to the left arm for 2 days intermittently. At 1:30 am while at rest, he felt a 7/10, cramp pain center of chest radiation to the left lateral chest and posterior left arm. This pain lasted for 5 minutes and terminated on its own. He had another occurrence today at 4 pm while cooking. It was less severit (4/10) with similar quality and terminated on its own. Denies SOB, nausea, vomiting, diaphoresis. Denies familial cardiac history. Past History - Past Medical History Allergies/Adverse Reactions: Allergies Allergy/AdvReac Type Severity Reaction Status Date / Time No Known Drug Allergies Allergy Verified 07/30/18 02:55 Home Medications: Ambulatory Orders Albuterol Sulfate Inhaler - [Ventolin HFA Inhaler -] 1 puff IH PRN 07/07/18 Hydrochlorothiazide [Hctz -] 12.5 mg PO DAILY #30 cap 07/08/18 Prednisone [Prednisone 50 MG TABLETS] 50 mg PO DAILY #5 tablet 07/30/18 Ranitidine [Zantac -] 150 mg PO BID #14 tablet 07/30/18 Anemia: No Asthma: Yes Cancer: No Cardiac Disorders: No CVA: No COPD: No CHF: No Dementia: No Diabetes: No GI Disorders: No 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) HTN: Yes Hypercholesterolemia: No Liver Disease: No Seizures: No Thyroid Disease: No - Immunization History Immunization Up to Date: No - Suicide/Smoking/Psychosocial Hx Smoking History: Current every day smoker Have you smoked in the past 12 months: Yes Number of Cigarettes Smoked Daily: 5 If you are a former smoker, when did you quit?: t-30 Information on smoking cessation initiated: No 'Breaking Loose' booklet given: 06/03/14 Hx Alcohol Use: No Drug/Substance Use Hx: No Substance Use Type: None Hx Substance Use Treatment: No *Physical Exam - Vital Signs Last Vital Signs Temp Pulse Resp BP Pulse Ox 98.3 F 87 18 155/91 96 11/20/18 17:59 11/20/18 17:59 11/20/18 17:59 11/20/18 17:59 11/20/18 17:59 ED Treatment Course - LABORATORY CBC & Chemistry Diagram: 11/20/18 18:14 11/20/18 18:14 - ADDITIONAL ORDERS Additional order review: Laboratory Results 11/20/18 18:14 Sodium 139 Potassium 4.1 Chloride 107 Carbon Dioxide 25 Anion Gap 7 L BUN 18 Creatinine 1.0 Creat Clearance w eGFR 79.42 Random Glucose 100 Calcium 8.7 Total Bilirubin 0.5 AST 18 ALT 21 Alkaline Phosphatase 86 Creatine Kinase 127 Troponin I < 0.02 Total Protein 7.2 Albumin 3.9 11/20/18 18:14 RBC 4.85 MCV 92.0 MCHC 33.6 RDW 14.0 MPV 9.3 Neutrophils % 73.9 Lymphocytes % 15.2 D Monocytes % 8.3 D Eosinophils % 2.2 Basophils % 0.4 D Medical Decision Making - Medical Decision Making 11/20/18 20:41 48 yo M with a hx of HTN and asthma presents to the emergency department with new quality chest pain that began today at 1:30 am. Per the patient, he has had chest pain center sternum with radiation to the left arm for 2 days intermittently. Initial vitals: Initial Vital Signs Temp Pulse Resp BP Pulse Ox 98.3 F 87 18 155/91 96 11/20/18 17:59 11/20/18 17:59 11/20/18 17:59 11/20/18 17:59 11/20/18 17:59 Work up: EKG: t wave inversion in V1, t wave flattening v2, and t wave upright in avF ( compared to EKG 06/2018). Patients stress test within normal limits. ECHO 2017 shows no wall abnormalities, but limited. Mod TR and Mild MR. LVEF normal. *DC/Admit/Observation/Transfer Diagnosis at time of Disposition: Chest pain Qualifiers: Chest pain type: unspecified Qualified Code(s): R07.9 - Chest pain, unspecified - Referrals - Patient Instructions - Post Discharge Activity
[2018-11-20] MEDS ORDERED: ASPIRIN 81 MG CHEWABLE TABLETS PO ONE (20:39)
[2018-11-20] MEDS ORDERED: NITROGLYCERIN 2% OINTMENT - 1GM PACKET TD ONE ×2 (21:04→21:21)
[2018-11-20] MEDS ORDERED: ASPIRIN 81 MG CHEWABLE TABLETS ONE (21:21)
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
--- NOTE | 2018-11-20 23:27 | PDOC ---
Documentation entered by Adin Alexis SCRIBE, acting as scribe for Curtis Chand MD. Curtis Chand MD: This documentation has been prepared by the Vanesa pierce Nirvannie, SCRIBE, under my direction and personally reviewed by me in its entirety. I confirm that the documentation accurately reflects all work, treatment, procedures, and medical decision making performed by me. Attending Attestation - Resident Resident Name: David Rios - ED Attending Attestation I have performed the following: I have examined & evaluated the patient, The case was reviewed & discussed with the resident, I agree w/resident's findings & plan - HPI HPI: 11/20/18 20:59 Patient is a 48 with past medical history of HTN and asthma who presents with chest pain, crampy in character, lasting for the past 18 hours, intermittent, 7/ 10, radiating to the left arm. He denies associated shortness of breath, diaphoresis, fever, chills, or cough. - Physicial Exam PE: 11/20/18 23:23 Patient is awake and alert, obese, in no distress Normocephalic and atraumatic PERRLA, EOMI CTA No JVD RRR Abdomen soft, nontender No lower extremity edema Nonfocal neurologically - Medical Decision Making 11/20/18 23:24 48-year-old obese male with history of hypertension presents with atraumatic left and substernal chest pain associated with left arm pain and paresthesias that occurred at rest on the day of arrival. Patient reports that the pain is different in quality than previous episodes for which she was admitted and evaluated at this hospital in June 2018. In the ER, patient is asymptomatic and pain free. EKG reveals Inverted T-wave in V1 and T-wave flattening in V2 as well as pseudonormalization in 3 and aVF when compared to an EKG from 2018. Chest x-ray reveals no evidence of cardiomegaly/infiltrate or effusion. First cardiac troponin is within normal limit. Review patient's chart reveals an indeterminate echocardiogram and a negative stress test in 2018. Given the change in patient's chest pain as well as EKG abnormalities in contiguous leads when compared to previous EKG, patient's heart score is noted to be 4. Patient will be placed in observation on telemetry for serial cardiac enzymes.
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
[2018-11-21] MEDS ORDERED: ALBUTEROL SO4 0.083% IH SOL 2.5 MG/3 ML VIAL.NEB. NEB PRN (00:22)
[2018-11-21 03:12] VITALS: BMI 36.8
[2018-11-21] MEDS: HEPARIN NA (PORCINE) 5,000 UNITS/ML 1ML VIAL SQ SCH ×3 (05:49→22:07)
[2018-11-21 07:58] LABS: BASO % 0.3 % (0-2.0); EOS % 2.4 % (0-4.5); HEMATOCRIT 45.1 % (35.4-49); HEMOGLOBIN 15.1 GM/dL (11.7-16.9); LYMPH % 21.2 % (8-40); MCH 31.1 pg (25.7-33.7); MCHC 33.4 g/dl (32.0-35.9); MEAN CELL VOLUME 92.9 fl (80-96); MEAN PLT VOLUME 9.5 fl (7.5-11.1); MONO % 7.6 % (3.8-10.2); NEUT % 68.5 % (42.8-82.8); PLATELET COUNT 223 K/MM3 (134-434); RBC 4.85 M/mm3 (4.00-5.60); RDW 14.2 % (11.9-15.9)
[2018-11-21 08:13] LABS: CHOLESTEROL 163 mg/dL (50-200); HDL CHOLESTEROL 52 mg/dL (40-60); TRIGLYCERIDES 92 mg/dL (0-150)
[2018-11-21 08:23] LABS: ALBUMIN 3.7 g/dl (3.4-5.0); ALK PHOS 76 U/L (45-117); ANION GAP 4 MMOL/L (8-16); BILIRUBIN,TOTAL 0.7 mg/dL (0.2-1); BLOOD UREA NITROGEN 16 mg/dL (7-18); CALCIUM 9.1 mg/dL (8.5-10.1); CHLORIDE 105 mmol/L (98-107); CO2 30 mmol/L (21-32); GLUCOSE,RANDOM 86 mg/dL (74-106); MAGNESIUM 2.4 mg/dL (1.8-2.4); POTASSIUM 4.9 mmol/L (3.5-5.1); SGOT/AST 12 U/L (15-37); SGPT/ALT 19 U/L (13-61); SODIUM 138 mmol/L (136-145); TOT PROT 7.2 g/dl (6.4-8.2)
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
[2018-11-21] MEDS: amLODIPine BESYLATE 5 MG TABLET (FP) PO SCH (10:14)
--- NOTE | 2018-11-21 10:40 | PN ---
Progress Note, Physician Chief Complaint: comfortable, no chest pain - Current Medication List Current Medications: Active Medications Albuterol Sulfate (Ventolin 0.083% Nebulizer Soln -) 1 amp NEB Q6H PRN PRN Reason: ASTHMA Amlodipine Besylate (Norvasc -) 5 mg PO DAILY [facility] Last Admin: 11/21/18 10:14 Dose: 5 mg Heparin Sodium (Porcine) (Heparin -) 5,000 unit SQ TID [facility] Last Admin: 11/21/18 05:49 Dose: 5,000 unit - Objective Vital Signs: Vital Signs Temperature 97.9 F 11/21/18 05:53 Pulse Rate 78 11/21/18 05:53 Respiratory Rate 20 11/21/18 05:53 Blood Pressure 125/79 11/21/18 05:53 O2 Sat by Pulse Oximetry (%) 96 11/21/18 02:40 HEENT: Mm moist, no anemia, NECK: no JVD CHEST: Non tender CTA B/L CVS: S1S2 R no m/g/r ABD: No distention, BS + EXT: No edema feet, no calf tenderness, Pulses = [employer] SUPERVISOR: AOX3 non focal Labs: CBC, BMP 11/21/18 06:20 11/21/18 06:20 Problem List - Problems (1) Chest pain Assessment/Plan: atypical CP, resolved, only risk factor is smoking and HTN, previously evaluated at [place] underwent ETT that was reported normal, trop I X2 normal , LDL 108 cont ASA, add Simvastatin 20 mg,evaluated by cardiology recommended ECHO and NST. Code(s): R07.9 - CHEST PAIN, UNSPECIFIED Qualifiers: Chest pain type: unspecified Qualified Code(s): R07.9 - Chest pain, unspecified (2) HTN (hypertension) Assessment/Plan: cont amlodipine Code(s): I10 - ESSENTIAL (PRIMARY) HYPERTENSION Qualifiers: Hypertension type: unspecified Qualified Code(s): I10 - Essential (primary ) hypertension (3) Needs smoking cessation education Assessment/Plan: Refused Nicotine patch. Code(s): F17.200 - NICOTINE DEPENDENCE, UNSPECIFIED, UNCOMPLICATED
[2018-11-21] MEDS: NICOTINE 14 MG/24 HOURS TOPICAL PATCH TD SCH (13:36)
--- NOTE | 2018-11-21 15:09 | EKG ---
Test Reason : Blood Pressure : / mmHG Vent. Rate : 079 BPM Atrial Rate : 079 BPM P-R Int : 144 ms QRS Dur : 102 ms QT Int : 388 ms P-R-T Axes : 017 -10 -01 degrees QTc Int : 444 ms NORMAL SINUS RHYTHM INCOMPLETE RIGHT BUNDLE BRANCH BLOCK BORDERLINE ECG WHEN COMPARED WITH ECG OF 20-NOV-2018 17:38, INVERTED T WAVES HAVE REPLACED NONSPECIFIC T WAVE ABNORMALITY IN INFERIOR LEADS Confirmed by INDIGO TATE MD ([id number]) on 11/21/2018 3:09:00 PM Referred By: Confirmed By:INDIGO TATE MD
--- NOTE | 2018-11-21 15:10 | EKG ---
Test Reason : Blood Pressure : / mmHG Vent. Rate : 093 BPM Atrial Rate : 093 BPM P-R Int : 148 ms QRS Dur : 110 ms QT Int : 376 ms P-R-T Axes : 053 022 045 degrees QTc Int : 467 ms NORMAL SINUS RHYTHM INCOMPLETE RIGHT BUNDLE BRANCH BLOCK BORDERLINE ECG WHEN COMPARED WITH ECG OF 08-JUL-2018 09:01, NONSPECIFIC T WAVE ABNORMALITY, IMPROVED IN INFERIOR LEADS Confirmed by INDIGO TATE MD ([id number]) on 11/21/2018 3:10:22 PM Referred By: Confirmed By:INDIGO TATE MD
[2018-11-21] MEDS ORDERED: MELATONIN 5 MG TABLETS PO ONE (23:15)
[2018-11-22] MEDS: HEPARIN NA (PORCINE) 5,000 UNITS/ML 1ML VIAL SQ SCH ×3 (06:58→21:07)
--- NOTE | 2018-11-22 07:50 | PN ---
Teaching Attending Note Name of Resident: Shaylee Servin ATTENDING PHYSICIAN STATEMENT I saw and evaluated the patient. I reviewed the resident's note and discussed the case with the resident. I agree with the resident's findings and plan as documented. 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 Problem List - Problems (1) Chest pain Assessment/Plan: atypical CP, resolved, only risk factor is smoking and HTN, previously evaluated at [place] underwent ETT that was reported normal, trop I X2 normal , LDL 108 cont ASA, add Simvastatin 20 mg,evaluated by cardiology recommended ECHO and NST. Code(s): R07.9 - CHEST PAIN, UNSPECIFIED Qualifiers: Chest pain type: unspecified Qualified Code(s): R07.9 - Chest pain, unspecified (2) HTN (hypertension) Assessment/Plan: cont amlodipine Code(s): I10 - ESSENTIAL (PRIMARY) HYPERTENSION Qualifiers: Hypertension type: unspecified Qualified Code(s): I10 - Essential (primary ) hypertension (3) Needs smoking cessation education Assessment/Plan: Patient is on Nicotine Patch Code(s): F17.200 - NICOTINE DEPENDENCE, UNSPECIFIED, UNCOMPLICATED
[2018-11-22 08:13] LABS: BASO % 0.4 % (0-2.0); EOS % 2.4 % (0-4.5); HEMATOCRIT 45.4 % (35.4-49); HEMOGLOBIN 15.3 GM/dL (11.7-16.9); LYMPH % 19.1 % (8-40); MCH 31.1 pg (25.7-33.7); MCHC 33.7 g/dl (32.0-35.9); MEAN CELL VOLUME 92.3 fl (80-96); MEAN PLT VOLUME 9.7 fl (7.5-11.1); MONO % 9.2 % (3.8-10.2); NEUT % 68.9 % (42.8-82.8); PLATELET COUNT 225 K/MM3 (134-434); RBC 4.91 M/mm3 (4.00-5.60); RDW 14.1 % (11.9-15.9); WHITE BLOOD COUNT 10.1 K/mm3 (4.0-10.0)
[2018-11-22 08:23] LABS: ANION GAP 5 MMOL/L (8-16); BLOOD UREA NITROGEN 18 mg/dL (7-18); CALCIUM 8.8 mg/dL (8.5-10.1); CHLORIDE 104 mmol/L (98-107); CHOLESTEROL 162 mg/dL (50-200); CO2 29 mmol/L (21-32); GLUCOSE,RANDOM 89 mg/dL (74-106); HDL CHOLESTEROL 50 mg/dL (40-60); POTASSIUM 4.2 mmol/L (3.5-5.1); SODIUM 139 mmol/L (136-145); TRIGLYCERIDES 110 mg/dL (0-150)
[2018-11-22] MEDS: amLODIPine BESYLATE 5 MG TABLET (FP) PO SCH (09:38)
[2018-11-22] MEDS: NICOTINE 14 MG/24 HOURS TOPICAL PATCH TD SCH (09:38)
--- NOTE | 2018-11-22 11:04 | PN ---
Progress Note, Physician Chief Complaint: no further CP TELE NSR - Current Medication List Current Medications: Active Medications Albuterol Sulfate (Ventolin 0.083% Nebulizer Soln -) 1 amp NEB Q6H PRN PRN Reason: ASTHMA Amlodipine Besylate (Norvasc -) 5 mg PO DAILY [facility] Last Admin: 11/22/18 09:38 Dose: 5 mg Heparin Sodium (Porcine) (Heparin -) 5,000 unit SQ TID [facility] Last Admin: 11/22/18 06:58 Dose: 5,000 unit Nicotine (Nicoderm Patch -) 14 mg TD DAILY [facility] Last Admin: 11/22/18 09:38 Dose: 14 mg - Objective Vital Signs: Vital Signs Temperature 97.9 F 11/22/18 05:00 Pulse Rate 70 11/22/18 05:00 Respiratory Rate 18 11/22/18 05:00 Blood Pressure 127/80 11/22/18 05:00 O2 Sat by Pulse Oximetry (%) 98 11/21/18 21:00 Constitutional: Yes: No Distress, Calm Eyes: Yes: Conjunctiva Clear, EOM Intact HENT: Yes: Atraumatic, Normocephalic Neck: Yes: Trachea Midline Cardiovascular: Yes: Regular Rate and Rhythm Respiratory: Yes: CTA Bilaterally Gastrointestinal: Yes: Soft Edema: No Peripheral Pulses WNL: Yes Neurological: Yes: Alert, Oriented ...Motor Strength: WNL Labs: CBC, BMP 11/22/18 06:30 11/22/18 06:30 Laboratory Tests 11/20/18 11/20/18 11/21/18 18:14 23:20 06:20 WBC 10.0 Hgb Hct 45.1 Plt Count 223 Sodium Potassium Creatinine Troponin I < 0.02 < 0.02 11/21/18 11/22/18 11/22/18 06:20 06:30 06:30 WBC 10.1 H Hgb 15.3 Hct Plt Count 225 Sodium 139 Potassium 4.2 Creatinine 1.0 Troponin I < 0.02 - ....Imaging EKG: Image Reviewed Problem List - Problems (1) Chest pain Code(s): R07.9 - CHEST PAIN, UNSPECIFIED Qualifiers: Chest pain type: unspecified Qualified Code(s): R07.9 - Chest pain, unspecified (2) HTN (hypertension) Code(s): I10 - ESSENTIAL (PRIMARY) HYPERTENSION Qualifiers: Hypertension type: unspecified Qualified Code(s): I10 - Essential (primary ) hypertension Assessment/Plan IMP: 1. Several cardiac risk factors: HTN/ smoking with atypical chest pain 2. Chronic asthma REC: 1. Telemetry 2. Fasting Lipids: LDL 108- diet modification. 3. Echo 4. Exercise MPI on Friday 5. ASA; continue Amlodipine. 6. Counselled on smoking cessation, on patch 7. If stress MPI WNL, plan for d/c home later tomorrow with outpt f/u with PMD.
--- NOTE | 2018-11-22 13:57 | PN ---
Physical Exam: SUBJECTIVE: Patient seen and examined. Offers no complaints. No acute events overnight. OBJECTIVE: Vital Signs Period Temp Pulse Resp BP Sys/Ibanez Pulse Ox Last 24 Hr 97.9 F-98.8 F 70-85 18-20 127-137/80-95 98-98 GENERAL: Awake, alert, and fully oriented, in no acute distress. HEAD: Normal with no signs of trauma. EYES: Pupils equal, round and reactive to light, extraocular movements intact, sclera anicteric, conjunctiva clear. EARS, NOSE, THROAT: oropharynx clear without exudates. Moist mucous membranes. NECK: supple without lymphadenopathy, JVD, or masses. LUNGS: Breath sounds equal, clear to auscultation bilaterally. No wheezes, and no crackles. HEART: Regular rate and rhythm, normal S1 and S2 without murmur, rub or gallop. ABDOMEN: obese , nontender, not distended, normoactive bowel sounds, no guarding , no rebound, no masses. No hepatomegaly or splenomegaly. LOWER EXTREMITIES: 2+ pulses, warm, well-perfused. No peripheral edema. NEUROLOGICAL: Cranial nerves II-XII intact. Normal speech. Laboratory Results - last 24 hr 11/22/18 11/22/18 11/22/18 06:30 06:30 06:30 WBC 10.1 H RBC 4.91 Hgb 15.3 Hct 45.4 MCV 92.3 MCH 31.1 MCHC 33.7 RDW 14.1 Plt Count 225 MPV 9.7 Absolute Neuts (auto) 7.0 Neutrophils % 68.9 Lymphocytes % 19.1 Monocytes % 9.2 Eosinophils % 2.4 Basophils % 0.4 Nucleated RBC % 0 Sodium 139 Potassium 4.2 Chloride 104 Carbon Dioxide 29 Anion Gap 5 L BUN 18 Creatinine 1.0 Creat Clearance w eGFR 79.42 Random Glucose 89 Hemoglobin A1c % 5.6 Calcium 8.8 Triglycerides 110 Cholesterol 162 Total LDL Cholesterol 98 HDL Cholesterol 50 TSH 2.04 D Active Medications Generic Name Dose Route Start Last Admin Trade Name Freq PRN Reason Stop Dose Admin Albuterol Sulfate 1 amp 11/21/18 00:22 Ventolin 0.083% Nebulizer Soln - NEB Q6H PRN ASTHMA Amlodipine Besylate 5 mg 11/21/18 10:00 11/22/18 09:38 Norvasc - PO 5 mg DAILY [facility] Administration Aspirin 81 mg 11/22/18 11:15 Asa - PO DAILY [facility] Heparin Sodium (Porcine) 5,000 unit 11/21/18 06:00 11/22/18 06:58 Heparin - SQ 5,000 unit TID [facility] Administration Nicotine 14 mg 11/21/18 13:15 11/22/18 09:38 Nicoderm Patch - TD 14 mg DAILY [facility] Administration ASSESSMENT/PLAN: 48 yo M with a PMHx of HTN, Asthma, presented with Chest pain #Atypical Chest pain -resolved -Trop neg x 2 -EKG: t wave inversion in V1, t wave flattening v2, and t wave upright in avF( compared to EKG 06/2018) -07/14 Recent stress test, echo unremarkable. Last Echo was limited due to body habitus -Repeat ECHO -Tele monitoring -cardio on board -cont ASA, simvastatin -For stress test tomorrow. #HTN -resume home med -Amlodipine 5mg #Asthma -albuterol PRN #Obesity -BMI 36 -scholarship counselor on the risks of obesity #hx of Marijuna use -scholarship counselor on risks of excessive marijuana use #FEN -no iv fluids -monitor lytes -sodium diet #Dvt ppx -hep sq Dispo: likely dc tomorrow if stress test normal. Visit type - Emergency Visit Emergency Visit: Yes ED Registration Date: 11/20/18 Care time: The patient presented to the Emergency Department on the above date and was hospitalized for further evaluation of their emergent condition. - New Patient This patient is new to me today: Yes Date on this admission: 11/22/18 - Critical Care Critical Care patient: No
[2018-11-22] MEDS: ASPIRIN 81 MG CHEWABLE TABLETS PO SCH (13:59)
[2018-11-22] MEDS ORDERED: MELATONIN 5 MG TABLETS PO ONE (23:12)
[2018-11-23] MEDS: HEPARIN NA (PORCINE) 5,000 UNITS/ML 1ML VIAL SQ SCH ×3 (06:18→22:12)
[2018-11-23] MEDS: amLODIPine BESYLATE 5 MG TABLET (FP) PO SCH ×2 (07:57→09:34)
[2018-11-23] MEDS: NICOTINE 14 MG/24 HOURS TOPICAL PATCH TD SCH ×2 (07:57→09:34)
[2018-11-23] MEDS: ASPIRIN 81 MG CHEWABLE TABLETS PO SCH (09:34)
--- NOTE | 2018-11-23 15:04 | ECHO ---
Name: WALI SCHILLING Exam:Adult Echocardiogram Study Date: 11/23/2018 08:26 AM Age: 48 yrs Reason For Study: chest pain Height: 74 in Weight: 285 lb BSA: 2.5 m2 MMode/2D Measurements & Calculations IVSd: 0.88 cm Ao root diam: 3.4 cm LVIDd: 5.2 cm LA dimension: 3.2 cm LVIDs: 4.1 cm LVPWd: 1.1 cm EDV(Teich): 129.2 ml LVOT diam: 2.1 cm ESV(Teich): 72.7 ml Doppler Measurements & Calculations MV E max robert: 72.6 cm/sec Ao V2 max: 133.2 cm/sec MV A max robert: 93.8 cm/sec Ao max P.1 mmHg MV E/A: 0.77 Ao V2 mean: 87.6 cm/sec MV dec time: 0.17 sec Ao mean P.6 mmHg Ao V2 VTI: 28.1 cm DIA(I,D): 2.0 cm2 DIA(V,D): 2.5 cm2 LV V1 max P.5 mmHg SV(LVOT): 56.9 ml LV V1 mean P.7 mmHg LV V1 max: 93.3 cm/sec LV V1 mean: 58.5 cm/sec LV V1 VTI: 16.1 cm TR max robert: 182.2 cm/sec Med Peak E' Robert: 5.4 cm/sec TR max P.3 mmHg Med E/e': 13.5 Lat Peak E' Robert: 9.0 cm/sec Lat E/e': 8.1 Procedure A complete two-dimensional transthoracic echocardiogram was performed (2D, M-mode, Doppler and color flow Doppler). Left Ventricle The left ventricle is normal in size. Left ventricular systolic function is low normal. Ejection Frac tion = 50-55%. Grade I diastolic dysfunction, (abnormal relaxation pattern). Ratio E/E'= 13. No regional wal l motion abnormalities noted. Right Ventricle The right ventricle is normal size. The right ventricular systolic function is normal. RV systolic TD I is 11 cm/s. Atria The left atrial size is normal. Right atrial size is normal. Mitral Valve There is mild mitral annular calcification. There is no mitral regurgitation noted. Tricuspid Valve The tricuspid valve is normal in structure and function. No tricuspid regurgitation. Aortic Valve The aortic valve is normal in structure and function. No aortic regurgitation is present. Pulmonic Valve The pulmonic valve is not well visualized. Great Vessels The aortic root is normal size. Pericardium/Pleura There is no pericardial effusion. Interpretation Summary The left ventricle is normal in size. Left ventricular systolic function is low normal. No regional wall motion abnormalities noted. Ejection Fraction = 50-55%. Grade I diastolic dysfunction, (abnormal relaxation pattern). Ratio E/E'= 13 The right ventricular systolic function is normal. The left atrial size is normal. Right atrial size is normal. There is mild mitral annular calcification. There is no pericardial effusion. When compared to study dated 07/08/18, no significant changes are seen Zan Parker MD 11/23/2018 03:03 PM
--- NOTE | 2018-11-23 16:32 | PN ---
Physical Exam: SUBJECTIVE: Patient seen and examined at bedside. Remains comfortable , chest pain free. OBJECTIVE: Vital Signs Period Temp Pulse Resp BP Sys/Ibanez Pulse Ox Last 24 Hr 97.9 F-99.0 F 60-91 18-20 110-148/51-88 97-97 GENERAL: The patient is awake, alert, and fully oriented, in no acute distress. HEAD: Normal with no signs of trauma. EYES: PERRL, extraocular movements intact, sclera anicteric, conjunctiva clear. No ptosis. ENT: Ears normal, nares patent, oropharynx clear without exudates, moist mucous membranes. NECK: Trachea midline, full range of motion, supple. LUNGS: Breath sounds equal, clear to auscultation bilaterally, no wheezes, no crackles, no accessory muscle use. HEART: Regular rate and rhythm, S1, S2 without murmur, rub or gallop. ABDOMEN: Soft, nontender, nondistended, normoactive bowel sounds, no guarding, no rebound, no hepatosplenomegaly, no masses. EXTREMITIES: 2+ pulses, warm, well-perfused, no edema. NEUROLOGICAL: Cranial nerves II through XII grossly intact. Normal speech, gait not observed. PSYCH: Normal mood, normal affect. SKIN: Warm, dry, normal turgor, no rashes or lesions noted Active Medications Generic Name Dose Route Start Last Admin Trade Name Freq PRN Reason Stop Dose Admin Albuterol Sulfate 1 amp 11/21/18 00:22 Ventolin 0.083% Nebulizer Soln - NEB Q6H PRN ASTHMA Amlodipine Besylate 5 mg 11/21/18 10:00 11/23/18 09:34 Norvasc - PO Not Given DAILY [facility] Aspirin 81 mg 11/22/18 11:15 11/23/18 09:34 Asa - PO Not Given DAILY [facility] Heparin Sodium (Porcine) 5,000 unit 11/21/18 06:00 11/23/18 06:18 Heparin - SQ 5,000 unit TID [facility] Administration Nicotine 14 mg 11/21/18 13:15 11/23/18 09:34 Nicoderm Patch - TD Not Given DAILY [facility] ASSESSMENT/PLAN: 48 yo M with a PMHx of HTN, Asthma, presented with Chest pain #Atypical Chest pain -resolved -Trop neg x 2 -EKG: t wave inversion in V1, t wave flattening v2, and t wave upright in avF( compared to EKG 06/2018) -07/14 Recent stress test, echo unremarkable. Last Echo was limited due to body habitus -Repeat ECHO >> Remains unchanged with G1DD/ nL LVEF. - Awaiting stress test read >> If negative , can be discharged today. #HTN -Amlodipine 5mg #Asthma -albuterol PRN #Obesity -BMI 36 -addiction treatment counselor on the risks of obesity #hx of Marijuna use -addiction treatment counselor on risks of excessive marijuana use #FEN -no iv fluids -monitor lytes -sodium diet #Dvt ppx -hep sq D/C planning pending NST read. Visit type - Emergency Visit Emergency Visit: Yes ED Registration Date: 11/20/18 Care time: The patient presented to the Emergency Department on the above date and was hospitalized for further evaluation of their emergent condition. - New Patient This patient is new to me today: Yes Date on this admission: 11/23/18 - Critical Care Critical Care patient: No - Discharge Referral Referred to [facility] Med P.C.: No
--- NOTE | 2018-11-23 16:43 | PN ---
Progress Note (short form) - Note Progress Note: s: no chest pain, palps, dizziness, lightheadedness tele: sinus Current Medications Albuterol Sulfate (Ventolin 0.083% Nebulizer Soln -) 1 amp NEB Q6H PRN PRN Reason: ASTHMA Amlodipine Besylate (Norvasc -) 5 mg PO DAILY [facility] Last Admin: 11/23/18 09:34 Dose: Not Given Aspirin (Asa -) 81 mg PO DAILY [facility] Last Admin: 11/23/18 09:34 Dose: Not Given Heparin Sodium (Porcine) (Heparin -) 5,000 unit SQ TID [facility] Last Admin: 11/23/18 16:34 Dose: Not Given Nicotine (Nicoderm Patch -) 14 mg TD DAILY [facility] Last Admin: 11/23/18 09:34 Dose: Not Given Vital Signs Period Temp Pulse Resp BP Sys/Ibanez Pulse Ox Last 24 Hr 97.9 F-99.0 F 60-91 18-20 110-148/51-88 97-97 Constitutional: Yes: No Distress, Calm Eyes: Yes: Conjunctiva Clear, EOM Intact HENT: Yes: Atraumatic, Normocephalic Neck: Yes: Trachea Midline Cardiovascular: Yes: Regular Rate and Rhythm Respiratory: Yes: CTA Bilaterally Gastrointestinal: Yes: Soft Edema: No Peripheral Pulses WNL: Yes Neurological: Yes: Alert, Oriented ...Motor Strength: WNL - ....Imaging EKG: Image Reviewed Problem List - Problems (1) Chest pain Code(s): R07.9 - CHEST PAIN, UNSPECIFIED Qualifiers: Chest pain type: unspecified Qualified Code(s): R07.9 - Chest pain, unspecified (2) HTN (hypertension) Code(s): I10 - ESSENTIAL (PRIMARY) HYPERTENSION Qualifiers: Hypertension type: unspecified Qualified Code(s): I10 - Essential (primary ) hypertension Assessment/Plan IMP: 1. Several cardiac risk factors: HTN/ smoking with atypical chest pain 2. Chronic asthma REC: 1. Telemetry - no events 2. Fasting Lipids: LDL 108- diet modification. 3. Echo - nl LV function, no RWMA, impaired relaxation. unchanged from prior. 4. Nuclear stress done today, pending 5. ASA; continue Amlodipine. 6. Counselled on smoking cessation, on patch 7. If stress MPI WNL, plan for d/c home today with outpt f/u with PMD.
--- NOTE | 2018-11-23 17:16 | PN ---
Physical Exam: SUBJECTIVE: Patient seen and examined this AM. No new complaints. No acute overnight events. OBJECTIVE: Vital Signs Period Temp Pulse Resp BP Sys/Ibanez Pulse Ox Last 24 Hr 97.9 F-98.1 F 60-91 18-20 110-148/51-87 97-97 GENERAL: A&Ox3, NAD HEAD: NCAT EYES: PERRL, EOMI ENT: Moist mucous membranes NECK: Supple LUNGS: Diminished breath sounds at the bases, no wheezes, no crackles HEART: Regular rate and rhythm, S1, S2 without murmur ABDOMEN: Soft, nontender, nondistended, + bowel sounds, no guarding EXTREMITIES: no edema. NEUROLOGICAL: Cranial nerves II through XII grossly intact. SKIN: Warm, dry Active Medications Albuterol Sulfate (Ventolin 0.083% Nebulizer Soln -) 1 amp NEB Q6H PRN PRN Reason: ASTHMA Amlodipine Besylate (Norvasc -) 5 mg PO DAILY [facility] Last Admin: 11/23/18 09:34 Dose: Not Given Aspirin (Asa -) 81 mg PO DAILY [facility] Last Admin: 11/23/18 09:34 Dose: Not Given Heparin Sodium (Porcine) (Heparin -) 5,000 unit SQ TID [facility] Last Admin: 11/23/18 16:34 Dose: Not Given Nicotine (Nicoderm Patch -) 14 mg TD DAILY [facility] Last Admin: 11/23/18 09:34 Dose: Not Given IMAGING: -CXR: A single view of the chest has been submitted. Since 07/07/2018 there is no change of an adverse nature and no sign of an acute process. There are degenerative changes with wedging, clear lungs and normal mediastinum. Correlation recommended. -Myocardial perfusion scan: EXERCISE RESULTS: Overall negative stress test, Appropriate blood pressure response, Fair exercise tolerance and capacity, Occasional premature ventricular complexes were seen. NUCLEAR RESULTS: Small to moderate zone of inferolateral reversible defect suggest mild intensity ischemia with underlying inferobasal attenuation artifact Low normal LV systolic function with LV ejection fraction of 53%. -EKG: NSR, incomplete RBBB, VR 79m QTc 444 -ECHO: LV is normal in size, LV Systolic function is low normal, No regional WMA , EF 50-55%, Grade 1 diastolic dysfunction, RV Systolic function is normal. LA size is normal. RA size is normal. ASSESSMENT/PLAN: 48 y/o M with a PMHx of HTN, Asthma, presented with Chest pain. #Atypical Chest pain---resolved -EKG, Echo noted above -Stress test found reversible defect suggest mild intensity ischemia (noted above) -Cardio consulted, appreciate rec's--Will discuss transfer with Dr. Sadler -Tele monitoring -Continue ASA, simvastatin #HTN -Amlodipine 5mg daily #Asthma -Albuterol PRN #Obesity -counselled on diet, weight loss and exercise #FEN -no standing fluids -monitor lytes -sodium controlled diet #PPx -DVT: Heparin TID Visit type - Emergency Visit Emergency Visit: Yes ED Registration Date: 11/20/18 Care time: The patient presented to the Emergency Department on the above date and was hospitalized for further evaluation of their emergent condition. - New Patient This patient is new to me today: Yes Date on this admission: 11/23/18 - Critical Care Critical Care patient: No - Discharge Referral Referred to [facility] Med P.C.: No
[2018-11-23] MEDS ORDERED: MELATONIN 5 MG TABLETS PO ONE (21:06)
[2018-11-24] MEDS: HEPARIN NA (PORCINE) 5,000 UNITS/ML 1ML VIAL SQ SCH ×3 (06:10→21:11)
[2018-11-24] MEDS: amLODIPine BESYLATE 5 MG TABLET (FP) PO SCH (09:45)
[2018-11-24] MEDS: NICOTINE 14 MG/24 HOURS TOPICAL PATCH TD SCH (09:45)
[2018-11-24] MEDS: ASPIRIN 81 MG CHEWABLE TABLETS PO SCH (09:45)
--- NOTE | 2018-11-24 11:26 | PN ---
Physical Exam: SUBJECTIVE: Patient seen and examined at bedside. Remains comfortable. OBJECTIVE: Vital Signs Period Temp Pulse Resp BP Sys/Ibanez Pulse Ox Last 24 Hr 97.6 F-98.4 F 64-98 18-20 100-145/51-86 96-96 GENERAL: The patient is awake, alert, and fully oriented, in no acute distress. HEENT: Unremarkable. LUNGS: Breath sounds equal, clear to auscultation bilaterally, no wheezes, no crackles, no accessory muscle use. HEART: Regular rate and rhythm, S1, S2 without murmur, rub or gallop. ABDOMEN: Soft, nontender, nondistended, normoactive bowel sounds, no guarding, no rebound, no hepatosplenomegaly, no masses. EXTREMITIES: 2+ pulses, warm, well-perfused, no edema. NEUROLOGICAL: Cranial nerves II through XII grossly intact. Normal speech, gait not observed. PSYCH: Normal mood, normal affect. SKIN: Warm, dry, normal turgor, no rashes or lesions noted Active Medications Generic Name Dose Route Start Last Admin Trade Name Freq PRN Reason Stop Dose Admin Albuterol Sulfate 1 amp 11/21/18 00:22 Ventolin 0.083% Nebulizer Soln - NEB Q6H PRN ASTHMA Amlodipine Besylate 5 mg 11/21/18 10:00 11/24/18 09:45 Norvasc - PO 5 mg DAILY [facility] Administration Aspirin 81 mg 11/22/18 11:15 11/24/18 09:45 Asa - PO 81 mg DAILY [facility] Administration Heparin Sodium (Porcine) 5,000 unit 11/21/18 06:00 11/24/18 06:10 Heparin - SQ 5,000 unit TID [facility] Administration Nicotine 14 mg 11/21/18 13:15 11/24/18 09:45 Nicoderm Patch - TD 14 mg DAILY [facility] Administration ASSESSMENT/PLAN: 48 y/o M with a PMHx of HTN, Asthma, presented with Chest pain. #Atypical Chest pain---resolved -EKG, Echo noted . -Stress test found reversible defect suggest mild intensity ischemia . -Cardio consulted, appreciate rec's--Will discuss transfer with Dr. Sadler -Tele monitoring - If okay with cardio, can discharge the patient and have him f/u as outpt for elective cath. -Continue ASA, simvastatin #HTN -Amlodipine 5mg daily #Asthma -Albuterol PRN #Obesity -counselled on diet, weight loss and exercise #FEN -no standing fluids -monitor lytes -sodium controlled diet #PPx -DVT: November d/c Heparin , encourage ambulation. Plan d/w the collector of internal revenue in round, Visit type - Emergency Visit Emergency Visit: Yes ED Registration Date: 11/20/18 Care time: The patient presented to the Emergency Department on the above date and was hospitalized for further evaluation of their emergent condition. - New Patient This patient is new to me today: No - Critical Care Critical Care patient: No - Discharge Referral Referred to [facility] Med P.C.: No
--- NOTE | 2018-11-24 11:50 | PN ---
Progress Note (short form) - Note Progress Note: s: no chest pain, palps, dizziness, lightheadedness current smoker tele: sinus Current Medications Albuterol Sulfate (Ventolin 0.083% Nebulizer Soln -) 1 amp NEB Q6H PRN PRN Reason: ASTHMA Amlodipine Besylate (Norvasc -) 5 mg PO DAILY [facility] Last Admin: 11/23/18 09:34 Dose: Not Given Aspirin (Asa -) 81 mg PO DAILY [facility] Last Admin: 11/23/18 09:34 Dose: Not Given Heparin Sodium (Porcine) (Heparin -) 5,000 unit SQ TID [facility] Last Admin: 11/23/18 16:34 Dose: Not Given Nicotine (Nicoderm Patch -) 14 mg TD DAILY [facility] Last Admin: 11/23/18 09:34 Dose: Not Given Vital Signs Period Temp Pulse Resp BP Sys/Ibanez Pulse Ox Last 24 Hr 97.9 F-99.0 F 60-91 18-20 110-148/51-88 97-97 Constitutional: Yes: No Distress, Calm Eyes: Yes: Conjunctiva Clear, EOM Intact HENT: Yes: Atraumatic, Normocephalic Neck: Yes: Trachea Midline Cardiovascular: Yes: Regular Rate and Rhythm Respiratory: Yes: CTA Bilaterally Gastrointestinal: Yes: Soft Edema: No Peripheral Pulses WNL: Yes Neurological: Yes: Alert, Oriented ...Motor Strength: WNL - ....Imaging EKG: Image Reviewed Problem List - Problems (1) Chest pain Code(s): R07.9 - CHEST PAIN, UNSPECIFIED Qualifiers: Chest pain type: unspecified Qualified Code(s): R07.9 - Chest pain, unspecified (2) HTN (hypertension) Code(s): I10 - ESSENTIAL (PRIMARY) HYPERTENSION Qualifiers: Hypertension type: unspecified Qualified Code(s): I10 - Essential (primary ) hypertension Assessment/Plan IMP: 1. Several cardiac risk factors: HTN/ smoking with atypical chest pain 2. Chronic asthma REC: 1. Telemetry - no events 2. Fasting Lipids: LDL 108- diet modification. 3. Echo - nl LV function, no RWMA, impaired relaxation. unchanged from prior 4. ASA; continue Amlodipine. 5. Counselled on smoking cessation, on patch 6. Stress MPI: small to moderate zone of inferolateral reversible defect c/w mild intensity ischemia with underlying inferobasal attenuation artifact. EF 53 %. Discussed with patient, will transfer for cardiac cath [place] [facility] Dr. Quezada.
--- NOTE | 2018-11-24 13:25 | DS ---
Physical Exam: SUBJECTIVE: Patient seen and examined this AM. Denies any further chest pain. No SOB. No new complaints. No acute overnight events. OBJECTIVE: Vital Signs Period Temp Pulse Resp BP Sys/Ibanez Pulse Ox Last 24 Hr 97.6 F-98.4 F 64-98 18-20 100-145/51-86 96-96 PHYSICAL EXAM GENERAL: A&Ox3, NAD HEAD: NCAT EYES: PERRL, EOMI ENT: Moist mucous membranes NECK: Supple LUNGS: CTA B/L, no wheezes, no crackles HEART: Regular rate and rhythm, S1, S2 without murmur ABDOMEN: Soft, nontender, nondistended, + bowel sounds, no guarding EXTREMITIES: no edema. NEUROLOGICAL: Cranial nerves II through XII grossly intact. SKIN: Warm, dry LABS Laboratory Last Values WBC 10.1 K/mm3 (4.0-10.0) H 11/22/18 06:30 RBC 4.91 M/mm3 (4.00-5.60) 11/22/18 06:30 Hgb 15.3 GM/dL (11.7-16.9) 11/22/18 06:30 Hct 45.4 % (35.4-49) 11/22/18 06:30 MCV 92.3 fl (80-96) 11/22/18 06:30 MCH 31.1 pg (25.7-33.7) 11/22/18 06:30 MCHC 33.7 g/dl (32.0-35.9) 11/22/18 06:30 RDW 14.1 % (11.9-15.9) 11/22/18 06:30 Plt Count 225 K/MM3 (134-434) 11/22/18 06:30 MPV 9.7 fl (7.5-11.1) 11/22/18 06:30 Absolute Neuts (auto) 7.0 K/mm3 (1.5-8.0) 11/22/18 06:30 Neutrophils % 68.9 % (42.8-82.8) 11/22/18 06:30 Lymphocytes % 19.1 % (8-40) 11/22/18 06:30 Monocytes % 9.2 % (3.8-10.2) 11/22/18 06:30 Eosinophils % 2.4 % (0-4.5) 11/22/18 06:30 Basophils % 0.4 % (0-2.0) 11/22/18 06:30 Nucleated RBC % 0 % (0-0) 11/22/18 06:30 Sodium 139 mmol/L (136-145) 11/22/18 06:30 Potassium 4.2 mmol/L (3.5-5.1) 11/22/18 06:30 Chloride 104 mmol/L (98-107) 11/22/18 06:30 Carbon Dioxide 29 mmol/L (21-32) 11/22/18 06:30 Anion Gap 5 MMOL/L (8-16) L 11/22/18 06:30 BUN 18 mg/dL (7-18) 11/22/18 06:30 Creatinine 1.0 mg/dL (0.55-1.3) 11/22/18 06:30 Creat Clearance w eGFR 79.42 (>60) 11/22/18 06:30 Random Glucose 89 mg/dL (74-106) 11/22/18 06:30 Hemoglobin A1c % 5.6 % (4.2-6.3) 11/22/18 06:30 Calcium 8.8 mg/dL (8.5-10.1) 11/22/18 06:30 Magnesium 2.4 mg/dL (1.8-2.4) 11/21/18 06:20 Total Bilirubin 0.7 mg/dL (0.2-1) 11/21/18 06:20 AST 12 U/L (15-37) L 11/21/18 06:20 ALT 19 U/L (13-61) 11/21/18 06:20 Alkaline Phosphatase 76 U/L (45-117) 11/21/18 06:20 Creatine Kinase 98 U/L (26-308) 11/21/18 06:20 Troponin I < 0.02 ng/ml (0.00-0.05) 11/21/18 06:20 Total Protein 7.2 g/dl (6.4-8.2) 11/21/18 06:20 Albumin 3.7 g/dl (3.4-5.0) 11/21/18 06:20 Triglycerides 110 mg/dL (0-150) 11/22/18 06:30 Cholesterol 162 mg/dL (50-200) 11/22/18 06:30 Total LDL Cholesterol 98 mg/dL (5-100) 11/22/18 06:30 HDL Cholesterol 50 mg/dL (40-60) 11/22/18 06:30 TSH 2.04 uIU/ml (0.358-3.74) D 11/22/18 06:30 IMAGING: -CXR: A single view of the chest has been submitted. Since 07/07/2018 there is no change of an adverse nature and no sign of an acute process. There are degenerative changes with wedging, clear lungs and normal mediastinum. Correlation recommended. -Myocardial perfusion scan: EXERCISE RESULTS: Overall negative stress test, Appropriate blood pressure response, Fair exercise tolerance and capacity, Occasional premature ventricular complexes were seen. NUCLEAR RESULTS: Small to moderate zone of inferolateral reversible defect suggest mild intensity ischemia with underlying inferobasal attenuation artifact Low normal LV systolic function with LV ejection fraction of 53%. -EKG: NSR, incomplete RBBB, VR 79m QTc 444 -ECHO: LV is normal in size, LV Systolic function is low normal, No regional WMA , EF 50-55%, Grade 1 diastolic dysfunction, RV Systolic function is normal. LA size is normal. RA size is normal. HOSPITAL COURSE: Date of Admission:11/20/18 Date of Discharge: 11/24/18 48 y/o M with a PMHx of HTN, Asthma, presented with Atypical Chest pain. EKG, Echo, Imaging and labwork noted above. Cardiology was consulted and recommended a stress test which found reversible defect suggest mild intensity ischemia ( noted above). Patients chest pain resolved and he experienced no further episodes. Patient was counselled on diet, weight loss and exercise given his obesity and elevated LDL. Additionally he was started on Atorvastatin. Patient continued all of his home meds during his stay. Cardiac cath was discussed with patient by cardiology. Patient was transferred to [facility] for cardiac cath. He was given strict instruction for physician follow up, medication compliance and marijuana cessation. Minutes to complete discharge: 36 Discharge Summary Reason For Visit: CHEST PAIN Current Active Problems Chest pain (Acute) Needs smoking cessation education (Acute) Condition: Improved - Instructions Diet, Activity, Other Instructions: You were admitted to the hospital because you had chest pain. You were seen by a grocery bagger and had a stress test done that was positive. You are being transferred to have a cardiac cath done. Medication changes 1. Continue taking Atorvastatin (Lipitor) 40mg at bedtime daily Follow up with the following physicians: 1. PCP in one week 2. Cardiology--Dr. Sadler in one week Your LDL cholesterol was elevated at 108. Please continue to lose weight, exercise and have a low fat diet. This value needs to be rechecked in 6 months as you may require a medication. Stop using marijuana. Continue all your other medications as prescribed Please return to the ER if you have any signs or symptoms of chest pain, shortness of breath, uncontrollable fever, chills, nausea, vomiting, numbness, tingling, or weakness in any part of your body, changes in vision, slurred speech, changes in speech/gait, or dizziness. Please return to the ER if symptoms persist, worsen, or new symptoms arise. Referrals: Parht Sadler MD [Staff Physician] - Disposition: HOME - Home Medications Comprehensive Discharge Medication List: Ambulatory Orders Albuterol 0.083% Nebulizer Teena [Ventolin 0.083% Nebulizer Soln -] 1 puff PO PRN PRN 11/21/18 Amlodipine Besylate 5 mg PO DAILY 11/21/18 Aspirin [ASA -] 81 mg PO DAILY 11/23/18 Atorvastatin Ca [Lipitor] 40 mg PO HS #30 tablet 11/24/18 This patient is new to me today: No Emergency Visit: Yes ED Registration Date: 11/20/18 Care time: The patient presented to the Emergency Department on the above date and was hospitalized for further evaluation of their emergent condition. Critical Care patient: No - Discharge Referral Referred to [facility] No
[2018-11-24 20:30] VITALS: BP 128/75; PULSE 97; TEMP 98.1
[2018-11-24] MEDS ORDERED: ATORVASTATIN CA 40 MG TABLET (FP) PO SCH (22:00)
== END 2018-11-24 22:00 | disposition short-term general hospital (02) | DRG 313 ==
LOC: JER 17:42 → JERBED 23:19 → J4W 11-21 02:54
PROVIDERS: ADMIT Internal Medicine; ATTEND Internal Medicine
DX: R07.89 Other chest pain (principal); Z68.36 Body mass index [BMI] 36.0-36.9, adult; E66.9 Obesity, unspecified; I10 Essential (primary) hypertension; F17.210 Nicotine dependence, cigarettes, uncomplicated; J45.909 Unspecified asthma, uncomplicated; F12.10 Cannabis abuse, uncomplicated; R06.00 Dyspnea, unspecified
CPT/HCPCS: 36415; 71046-TC-FY; 78452-TC; 80048; 80053; 80061; 82550; 83036; 83721; 83735; 84443; 84484; 85025; 93005; 93010; 93017; 93306-TC; 99282-25; A9502; J1644

== ENCOUNTER 2020-06-06 12:52 | Emergency (ER) | payer OTHER ==
[2020-06-06] MEDS ORDERED: ASPIRIN 81 MG CHEWABLE TABLETS PO ONE (12:56)
[2020-06-06 13:17] VITALS: BMI 37.8
[2020-06-06] MEDS ORDERED: ASPIRIN 325 MG ENTERIC COATED TABLET (FP) ONE (13:37)
[2020-06-06 14:06] LABS: BASO % 0.5 % (0-2.0); EOS % 1.3 % (0-4.5); HEMATOCRIT 46.7 % (35.4-49); HEMOGLOBIN 15.1 GM/dL (11.7-16.9); LYMPH % 11.5 % (8-40); MCH 29.4 pg (25.7-33.7); MCHC 32.3 g/dl (32.0-35.9); MEAN CELL VOLUME 90.8 fl (80-96); MEAN PLT VOLUME 9.2 fl (7.5-11.1); MONO % 7.2 % (3.8-10.2); NEUT % 79.5 % (42.8-82.8); PLATELET COUNT 269 K/MM3 (134-434); RBC 5.14 M/mm3 (4.00-5.60)
[2020-06-06 14:12] LABS: INR 1.03 (0.83-1.09); PROTHROMBIN TIME (PATIENT) 12.5 SEC (9.7-13.0)
[2020-06-06 14:15] LABS: ACTIVATED PTT 28.6 SECONDS (25.2-36.5)
[2020-06-06 14:34] LABS: CHLORIDE 106 mmol/L (98-107); POTASSIUM 4.4 mmol/L (3.5-5.1); SODIUM 138 mmol/L (136-145)
[2020-06-06 14:36] LABS: CALCIUM 9.4 mg/dL (8.5-10.1)
[2020-06-06 14:37] LABS: ANION GAP 6 MMOL/L (8-16); BLOOD UREA NITROGEN 16.5 mg/dL (7-18); CO2 27 mmol/L (21-32); GLUCOSE,RANDOM 114 mg/dL (74-106); MAGNESIUM 2.2 mg/dL (1.8-2.4)
[2020-06-06 14:39] LABS: CREATININE 1.1 mg/dL (0.55-1.3)
[2020-06-06 14:40] LABS: SGOT/AST 20 U/L (15-37); SGPT/ALT 27 U/L (13-61)
[2020-06-06 14:41] LABS: BILIRUBIN,TOTAL 0.7 mg/dL (0.2-1); TOT PROT 7.3 g/dl (6.4-8.2)
[2020-06-06 14:42] LABS: ALK PHOS 83 U/L (45-117)
[2020-06-06 16:07] VITALS: BP 134/82; PULSE 86; TEMP 98.6
== END 2020-06-06 17:52 | disposition home or self-care (01) ==
LOC: JER 12:52
DX: R07.9 Chest pain, unspecified (principal)
CPT/HCPCS: 36415; 71046-TC-FY; 80053; 82550; 83735; 84484; 85025; 85379; 85610; 85730; 93005; 93010; 99285-25

== ENCOUNTER 2020-07-11 10:10 | Emergency (ER) | payer OTHER ==
[2020-07-11 10:30] VITALS: BMI 37.5
[2020-07-11 11:42] LABS: BASO % 0.2 % (0-2.0); EOS % 0.6 % (0-4.5); HEMATOCRIT 46.4 % (35.4-49); HEMOGLOBIN 15.3 GM/dL (11.7-16.9); LYMPH % 8.8 % (8-40); MCH 29.6 pg (25.7-33.7); MCHC 32.9 g/dl (32.0-35.9); MEAN PLT VOLUME 9.6 fl (7.5-11.1); NEUT % 83.4 % (42.8-82.8); PLATELET COUNT 289 K/MM3 (134-434); RBC 5.16 M/mm3 (4.00-5.60); RDW 13.7 % (11.9-15.9); WHITE BLOOD COUNT 11.6 K/mm3 (4.0-10.0)
[2020-07-11 11:55] LABS: INR 1.02 (0.83-1.09); PROTHROMBIN TIME (PATIENT) 12.5 SEC (9.7-13.0)
[2020-07-11 11:57] LABS: CHLORIDE 105 mmol/L (98-107); SODIUM 140 mmol/L (136-145)
[2020-07-11 11:58] LABS: ACTIVATED PTT 27.6 SECONDS (25.2-36.5)
[2020-07-11 12:00] LABS: ALBUMIN 4.1 g/dl (3.4-5.0); ANION GAP 8 MMOL/L (8-16); BLOOD UREA NITROGEN 16.1 mg/dL (7-18); CALCIUM 9.1 mg/dL (8.5-10.1); CO2 27 mmol/L (21-32); MAGNESIUM 2.3 mg/dL (1.8-2.4)
[2020-07-11 12:01] LABS: GLUCOSE,RANDOM 90 mg/dL (74-106)
[2020-07-11 12:03] LABS: SGOT/AST 13 U/L (15-37); SGPT/ALT 20 U/L (13-61)
[2020-07-11 12:05] LABS: BILIRUBIN,TOTAL 0.9 mg/dL (0.2-1); TOT PROT 7.6 g/dl (6.4-8.2)
[2020-07-11 12:06] LABS: ALK PHOS 95 U/L (45-117)
[2020-07-11 14:21] VITALS: TEMP 98.5
[2020-07-11 15:27] VITALS: BP 136/74; PULSE 82
== END 2020-07-11 15:28 | disposition home or self-care (01) ==
LOC: JER 10:10
DX: R07.9 Chest pain, unspecified (principal)
CPT/HCPCS: 36415; 71046-TC-FY; 80053; 82550; 83735; 84484; 85025; 85610; 85730; 93005; 93010; 99285-25

== ENCOUNTER 2020-11-23 19:06 | Emergency (ER) | payer OTHER ==
[2020-11-23 19:35] VITALS: BP 117/73; BMI 37.5
[2020-11-23] MEDS ORDERED: morphine CARPU-JECT 4 MG/1 ML DISP.SYRIN IVPUSH ONE (20:12)
[2020-11-23] MEDS ORDERED: ONDANSETRON 4 MG/2 ML VIAL IVPUSH ONE (20:12)
[2020-11-23] MEDS ORDERED: morphine SULFATE 4 MG/ML VIAL ONE (20:24)
[2020-11-23] MEDS ORDERED: ONDANSETRON 4 MG/2 ML VIAL ONE (20:25)
[2020-11-23 20:59] LABS: URINE APPEARANCE CLEAR; URINE BILIRUBIN NEGATIVE (NEGATIVE); URINE COLOR YELLOW; URINE GLUCOSE (UA) NEGATIVE (NEGATIVE); URINE KETONE NEGATIVE (NEGATIVE); URINE LEUK ESTERASE NEGATIVE (NEGATIVE); URINE NITRITE NEGATIVE (NEGATIVE); URINE PROTEIN NEGATIVE (NEGATIVE); URINE UROBILINOGEN 0.2 mg/dL (0.2-1.0)
[2020-11-23 23:29] VITALS: PULSE 98; TEMP 99.2
== END 2020-11-23 23:30 | disposition home or self-care (01) ==
LOC: JER 19:06
PROC: 3E033NZ Introduction of Analgesics, Hypnotics, Sedatives into Peripheral Vein, Percutaneous Approach (ICD-10-PCS; principal; 2020-11-23)
PROC: 3E033GC Introduction of Other Therapeutic Substance into Peripheral Vein, Percutaneous Approach (ICD-10-PCS; 2020-11-23)
DX: N13.30 Unspecified hydronephrosis (principal)
CPT/HCPCS: 74176-TC; 81003; 87086; 96374; 96375; 99284-25

== ENCOUNTER 2020-12-22 04:22 | Day surgery (SDC) | payer OTHER ==
[2020-12-20 18:57] VITALS: BMI 38.1
[2020-12-22] MEDS ORDERED: LIDOCAINE HCL/PF 2% SDV 5ML VIAL ONE (11:14)
[2020-12-22] MEDS ORDERED: DEXAMETHASONE SOD PHOSPHATE 4 MG/1 ML VIAL ONE (11:14)
[2020-12-22] MEDS ORDERED: KETOROLAC TROMETHAMINE 30 MG/1 ML VIAL ONE (11:14)
[2020-12-22] MEDS ORDERED: MIDAZOLAM HCL 2 MG/2 ML SINGLE DOSE VIAL ONE (11:15)
[2020-12-22] MEDS ORDERED: PROPOFOL 20 ML ONE ×3 (11:15)
[2020-12-22] MEDS ORDERED: SUCCINYLCHOLINE CHLORIDE 200 MG/10 ML SYRINGE ONE (11:16)
[2020-12-22] MEDS ORDERED: EPHEDRINE SULFATE/0.9% NACL/PF 50 MG/10 ML SYRINGE NR ONE (11:17)
[2020-12-22] MEDS ORDERED: oxyCODONE HCL 5 MG TABLET PO PRN ×2 (11:32)
[2020-12-22] MEDS ORDERED: ONDANSETRON 4 MG/2 ML VIAL IVPUSH PRN (11:32)
[2020-12-22] MEDS ORDERED: LACTATED RINGERS SOLUTION 1,000 ML IV SCH (11:45)
[2020-12-22] MEDS ORDERED: ceFAZolin SODIUM 1 GM VIAL IVPB ONE (11:55)
[2020-12-22] MEDS ORDERED: ceFAZolin SODIUM 1 GM VIAL ONE (12:16)
[2020-12-22] MEDS ORDERED: LIDOCAINE HCL 2% JELLY 10 ML CARTRIDGE ONE (12:27)
[2020-12-22] MEDS ORDERED: BACITRACIN 15 GM TUBE TOPICAL OINTMENT ONE (12:31)
[2020-12-22 16:44] VITALS: BP 141/81; PULSE 66; TEMP 98
== END 2020-12-22 14:50 | disposition home or self-care (01) ==
LOC: JASU-SURG 04:22
PROVIDERS: ATTEND Urology
PROC: BT1DYZZ Fluoroscopy of Right Kidney, Ureter and Bladder using Other Contrast (ICD-10-PCS; principal; 2020-12-22 12:00)
PROC: 0T768DZ Dilation of Right Ureter with Intraluminal Device, Via Natural or Artificial Opening Endoscopic (ICD-10-PCS; 2020-12-22 12:00)
DX: N13.1 Hydronephrosis with ureteral stricture, not elsewhere classified (principal)
CPT/HCPCS: 94760

== ENCOUNTER 2021-05-29 16:43 | Emergency (ER) | payer OTHER ==
[2021-05-29 16:57] VITALS: TEMP 98.1; BMI 36.3
[2021-05-29] MEDS ORDERED: PHENAZOPYRIDINE HCL 100 MG TABLET (FP) PO ONE (17:35)
[2021-05-29] MEDS ORDERED: KETOROLAC TROMETHAMINE 15 MG/ML VIAL IM ONE (17:35)
[2021-05-29] MEDS ORDERED: PHENAZOPYRIDINE HCL 100 MG TABLET (FP) ONE (17:57)
[2021-05-29] MEDS ORDERED: KETOROLAC TROMETHAMINE 15 MG/ML VIAL ONE (17:57)
[2021-05-29 18:22] LABS: URINE APPEARANCE CLEAR; URINE BILIRUBIN NEGATIVE (NEGATIVE); URINE COLOR YELLOW; URINE GLUCOSE (UA) NEGATIVE (NEGATIVE); URINE KETONE NEGATIVE (NEGATIVE); URINE LEUK ESTERASE NEGATIVE (NEGATIVE); URINE NITRITE NEGATIVE (NEGATIVE); URINE PROTEIN NEGATIVE (NEGATIVE); URINE UROBILINOGEN 0.2 mg/dL (0.2-1.0)
[2021-05-29] MEDS ORDERED: morphine CARPU-JECT 2 MG/1 ML DISP.SYRIN IM ONE (18:39)
[2021-05-29] MEDS ORDERED: morphine SULFATE 4 MG/ML VIAL ONE (18:48)
[2021-05-29 20:26] VITALS: BP 139/95; PULSE 80
== END 2021-05-29 20:10 | disposition home or self-care (01) ==
LOC: JER 16:43
PROC: 3E0233Z Introduction of Anti-inflammatory into Muscle, Percutaneous Approach (ICD-10-PCS; principal; 2021-05-29)
PROC: 3E033NZ Introduction of Analgesics, Hypnotics, Sedatives into Peripheral Vein, Percutaneous Approach (ICD-10-PCS; 2021-05-29)
DX: M54.50 Low back pain, unspecified (principal)
CPT/HCPCS: 74176-TC; 81003; 87086; 99284-25

== ENCOUNTER 2021-10-28 21:26 | Emergency (ER) | payer OTHER ==
[2021-10-28 21:48] VITALS: TEMP 98.2; BMI 36.1
[2021-10-28 22:36] LABS: BASO % 0.3 % (0-2.0); EOS % 2.6 % (0-4.5); HEMOGLOBIN 14.6 GM/dL (11.7-16.9); LYMPH % 19.7 % (8-40); MCH 30.2 pg (25.7-33.7); MEAN CELL VOLUME 88.9 fl (80-96); MEAN PLT VOLUME 8.4 fl (7.5-11.1); MONO % 9.8 % (3.8-10.2); NEUT % 67.6 % (42.8-82.8); PLATELET COUNT 246 10^3/uL (134-434); RBC 4.83 M/mm3 (4.00-5.60); RDW 14.1 % (11.9-15.9); WHITE BLOOD COUNT 9.4 K/mm3 (4.0-10.0)
[2021-10-28 22:58] LABS: ALBUMIN 3.6 g/dl (3.4-5.0); BLOOD UREA NITROGEN 15.7 mg/dL (7-18); CALCIUM 8.6 mg/dL (8.5-10.1)
[2021-10-28 23:01] LABS: CREATININE 1.2 mg/dL (0.55-1.3)
[2021-10-28 23:03] LABS: BILIRUBIN,TOTAL 0.5 mg/dL (0.2-1)
[2021-10-29 00:35] VITALS: BP 150/96; PULSE 86
== END 2021-10-29 01:28 | disposition home or self-care (01) ==
LOC: JER 21:26
DX: M79.602 Pain in left arm (principal)
CPT/HCPCS: 36415; 71045-TC-FY; 80053; 84484; 85025; 93005; 93010; 99285-25

== ENCOUNTER 2021-11-15 11:08 | Emergency (ER) | payer OTHER ==
[2021-11-15 11:16] VITALS: BP 110/64; PULSE 92; TEMP 97.6; BMI 37.5
[2021-11-15] MEDS ORDERED: LIDOCAINE 5% TOPICAL PATCH TP ONE (12:10)
[2021-11-15] MEDS ORDERED: KETOROLAC TROMETHAMINE 30 MG/1 ML VIAL IM ONE (12:10)
[2021-11-15] MEDS ORDERED: diazePAM 2 MG TABLET PO ONE (12:10)
[2021-11-15] MEDS ORDERED: KETOROLAC TROMETHAMINE 30 MG/1 ML VIAL ONE (12:12)
[2021-11-15] MEDS ORDERED: diazePAM 2 MG TABLET ONE (12:12)
[2021-11-15] MEDS ORDERED: LIDOCAINE 5% TOPICAL PATCH ONE (12:46)
[2021-11-15] MEDS ORDERED: LIDOCAINE PATCH REMOVAL MC SCH (22:00)
== END 2021-11-15 12:51 | disposition home or self-care (01) ==
LOC: JERFT 11:08
PROC: 3E0233Z Introduction of Anti-inflammatory into Muscle, Percutaneous Approach (ICD-10-PCS; principal; 2021-11-15)
DX: M79.622 Pain in left upper arm (principal); M62.830 Muscle spasm of back
CPT/HCPCS: 93005; 93010; 96372; 99283-25

== ENCOUNTER 2022-09-12 12:43 | Inpatient (IN) | payer OTHER ==
[2022-09-12 14:42] LABS: BASO % 0.1 % (0-2.0); HEMATOCRIT 43.5 % (35.4-49); HEMOGLOBIN 14.6 GM/dL (11.7-16.9); LYMPH % 6.6 % (8-40); MCH 30.7 pg (25.7-33.7); MCHC 33.5 g/dl (32.0-35.9); MEAN CELL VOLUME 91.4 fl (80-96); MEAN PLT VOLUME 8.7 fl (7.5-11.1); MONO % 9.4 % (3.8-10.2); NEUT % 83.9 % (42.8-82.8); PLATELET COUNT 302 10^3/uL (134-434); RBC 4.76 M/mm3 (4.00-5.60); RDW 14.1 % (11.9-15.9); WHITE BLOOD COUNT 19.5 K/mm3 (4.0-10.0)
[2022-09-12 14:57] LABS: EPI CELLS 4 /uL (0-25.1); HYALINE CASTS 0 /uL (0-3.1); PH,URINE 5.5 (5.0-8.0); URINE APPEARANCE CLOUDY; URINE BACTERIA >9,000 /uL (0-1359); URINE BILIRUBIN NEGATIVE (NEGATIVE); URINE COLOR YELLOW; URINE GLUCOSE (UA) NEGATIVE (NEGATIVE); URINE KETONE NEGATIVE (NEGATIVE); URINE LEUK ESTERASE 3+ (NEGATIVE); URINE NITRITE POSITIVE (NEGATIVE); URINE PROTEIN 1+ (NEGATIVE); URINE RBC 199 /uL (0-23.9); URINE UROBILINOGEN 0.2 mg/dL (0.2-1.0); URINE WBC 2803 /uL (0-25.8)
[2022-09-12] MEDS ORDERED: CEFTRIAXONE 1,000 MG in DEXTROSE 5%-WATER - 50 ML IVPB ONE (15:06)
[2022-09-12] MEDS ORDERED: CEFTRIAXONE 1 GM/50 ML BAG ONE (15:17)
[2022-09-12 15:28] LABS: CALCIUM 9.1 mg/dL (8.5-10.1)
[2022-09-12 15:29] LABS: BLOOD UREA NITROGEN 21.9 mg/dL (7-18)
[2022-09-12 15:32] LABS: CREATININE 1.3 mg/dL (0.55-1.3)
[2022-09-12 15:34] LABS: TOT PROT 7.3 g/dl (6.4-8.2)
[2022-09-12] MEDS ORDERED: ACETAMINOPHEN 1000 MG/100 ML BAG IVPB ONE (15:35)
[2022-09-12] MEDS ORDERED: ACETAMINOPHEN INJECTION 100 ML IVPB ONE (16:22)
[2022-09-12] MEDS ORDERED: ACETAMINOPHEN 325 MG TABLET (FP) PO PRN (16:52)
[2022-09-12] MEDS ORDERED: ALBUTEROL SO4 HFA INHALER IH PRN (18:30)
[2022-09-12] MEDS ORDERED: LACTATED RINGERS SOLUTION 1,000 ML/1,000 ML INFUS.BAG IV SCH (18:30)
[2022-09-12] MEDS ORDERED: PATIENT'S OWN MEDICATION (NON-FORMULARY) (Famotidine [Pepcid] 40 MG Tablet) PO SCH (22:00)
[2022-09-12] MEDS: HEPARIN NA (PORCINE) 5,000 UNITS/ML 1ML VIAL SQ SCH (23:26)
[2022-09-13] MEDS ORDERED: ATORVASTATIN CA 40 MG TABLET (FP) ONE (01:13)
[2022-09-13] MEDS ORDERED: ACETAMINOPHEN INJECTION 100 ML IVPB ONE ×2 (01:13→16:02)
[2022-09-13] MEDS ORDERED: HEPARIN NA (PORCINE) 5,000 UNITS/ML 1ML VIAL ONE ×3 (01:13→16:18)
[2022-09-13] MEDS: ACETAMINOPHEN 1000 MG/100 ML BAG IVPB PRN ×2 (01:27→16:07)
[2022-09-13] MEDS: ATORVASTATIN CA 40 MG TABLET (FP) PO SCH ×2 (01:27→21:42)
[2022-09-13] MEDS ORDERED: CEFTRIAXONE 1 GM/50 ML BAG ONE (08:06)
[2022-09-13] MEDS ORDERED: LOSARTAN POTASSIUM 25 MG TABLET ONE (08:06)
[2022-09-13] MEDS ORDERED: HYDROCHLOROTHIAZIDE 25 MG TABLET (FP) ONE (08:06)
[2022-09-13] MEDS ORDERED: ASPIRIN 81 MG CHEWABLE TABLETS ONE (08:06)
[2022-09-13] MEDS ORDERED: PANTOPRAZOLE 40 MG TABLET PO ONE ×2 (08:08→16:18)
[2022-09-13] MEDS: PANTOPRAZOLE 40 MG TABLET PO SCH ×2 (08:13→16:24)
[2022-09-13] MEDS: HEPARIN NA (PORCINE) 5,000 UNITS/ML 1ML VIAL SQ SCH ×3 (08:21→21:42)
[2022-09-13] MEDS: CEFTRIAXONE 1 GM in DEXTROSE 5%-WATER - 50 ML IVPB SCH (10:50)
[2022-09-13] MEDS: LOSARTAN POTASSIUM 25 MG TABLET PO SCH (10:50)
[2022-09-13] MEDS: HYDROCHLOROTHIAZIDE 25 MG TABLET (FP) PO SCH (10:50)
[2022-09-13] MEDS: ASPIRIN 81 MG CHEWABLE TABLETS PO SCH (10:50)
[2022-09-13 14:25] VITALS: BMI 35.4
[2022-09-13 15:02] LABS: HEMATOCRIT 42.6 % (35.4-49); HEMOGLOBIN 14.5 GM/dL (11.7-16.9); MCH 30.9 pg (25.7-33.7); MEAN CELL VOLUME 90.9 fl (80-96); MEAN PLT VOLUME 8.9 fl (7.5-11.1); PLATELET COUNT 313 10^3/uL (134-434); RBC 4.68 M/mm3 (4.00-5.60); WHITE BLOOD COUNT 20.6 K/mm3 (4.0-10.0)
[2022-09-13 15:30] LABS: ANISOCYTOSIS 0; MACROCYTOSIS 0
[2022-09-14] MEDS: HEPARIN NA (PORCINE) 5,000 UNITS/ML 1ML VIAL SQ SCH (05:08)
[2022-09-14 08:40] VITALS: RESP 16; TEMP 98
[2022-09-14 09:33] VITALS: BP 108/77; PULSE 88
[2022-09-14 09:52] LABS: BASO % 0.2 % (0-2.0); EOS % 0.6 % (0-4.5); HEMATOCRIT 41.3 % (35.4-49); HEMOGLOBIN 14.2 GM/dL (11.7-16.9); LYMPH % 10.5 % (8-40); MCH 31.3 pg (25.7-33.7); MCHC 34.5 g/dl (32.0-35.9); MEAN CELL VOLUME 90.8 fl (80-96); MEAN PLT VOLUME 8.6 fl (7.5-11.1); MONO % 7.5 % (3.8-10.2); NEUT % 81.2 % (42.8-82.8); PLATELET COUNT 258 10^3/uL (134-434); RBC 4.55 M/mm3 (4.00-5.60); WHITE BLOOD COUNT 12.5 K/mm3 (4.0-10.0)
[2022-09-14] MEDS: LOSARTAN POTASSIUM 25 MG TABLET PO SCH (09:59)
[2022-09-14] MEDS: ASPIRIN 81 MG CHEWABLE TABLETS PO SCH (09:59)
[2022-09-14] MEDS: HYDROCHLOROTHIAZIDE 25 MG TABLET (FP) PO SCH (09:59)
[2022-09-14] MEDS: CEFTRIAXONE 1 GM in DEXTROSE 5%-WATER - 50 ML IVPB SCH (10:00)
[2022-09-14] MEDS: PANTOPRAZOLE 40 MG TABLET PO SCH (10:00)
[2022-09-14 10:15] LABS: CALCIUM 8.9 mg/dL (8.5-10.1)
[2022-09-14 10:16] LABS: BLOOD UREA NITROGEN 21.3 mg/dL (7-18)
== END 2022-09-14 13:02 | disposition home or self-care (01) | DRG 872 ==
LOC: JER 12:43 → JERBED 15:53 → J6S 09-13 18:09
PROVIDERS: ADMIT Internal Medicine; ATTEND Internal Medicine
DX: A41.9 Sepsis, unspecified organism (principal); N12 Tubulo-interstitial nephritis, not specified as acute or chronic; I10 Essential (primary) hypertension; J45.909 Unspecified asthma, uncomplicated; K21.9 Gastro-esophageal reflux disease without esophagitis; E78.00 Pure hypercholesterolemia, unspecified; B96.20 Unspecified Escherichia coli [E. coli] as the cause of diseases classified elsewhere
CPT/HCPCS: 0241U-QW; 36415; 76775-TC; 76856-TC; 80048; 80053; 81003; 85025; 87086; 87186; 93005; 93010; 99285-25; J1644

== ENCOUNTER 2022-10-14 01:41 | Observation (INO) | payer OTHER ==
[2022-10-14 02:08] VITALS: BMI 33.6
[2022-10-14] MEDS ORDERED: ACETAMINOPHEN 1000 MG/100 ML BAG IVPB ONE (02:57)
[2022-10-14] MEDS ORDERED: FAMOTIDINE 20 MG/50 ML IVPB 20 MG/50 ML MG IVPB ONE ×2 (02:57→03:20)
[2022-10-14] MEDS ORDERED: SODIUM CHLORIDE 0.9% 500 ML INFUS.BAG IV ONE (02:57)
[2022-10-14] MEDS ORDERED: ACETAMINOPHEN INJECTION 100 ML IVPB ONE (03:20)
[2022-10-14 03:41] LABS: BASO % 0.3 % (0-2.0); EOS % 1.3 % (0-4.5); HEMATOCRIT 42.6 % (35.4-49); HEMOGLOBIN 14.6 GM/dL (11.7-16.9); LYMPH % 12.4 % (8-40); MCH 30.3 pg (25.7-33.7); MCHC 34.2 g/dl (32.0-35.9); MEAN CELL VOLUME 88.6 fl (80-96); MEAN PLT VOLUME 8.3 fl (7.5-11.1); MONO % 10.7 % (3.8-10.2); NEUT % 75.3 % (42.8-82.8); PLATELET COUNT 253 10^3/uL (134-434); RBC 4.81 M/mm3 (4.00-5.60); RDW 13.6 % (11.9-15.9); WHITE BLOOD COUNT 9.6 K/mm3 (4.0-10.0)
[2022-10-14 04:09] LABS: CALCIUM 8.6 mg/dL (8.5-10.1)
[2022-10-14 04:10] LABS: ALBUMIN 3.5 g/dl (3.4-5.0); BLOOD UREA NITROGEN 19.2 mg/dL (7-18); MAGNESIUM 2.1 mg/dL (1.8-2.4)
[2022-10-14 04:13] LABS: CREATININE 1.1 mg/dL (0.55-1.3)
[2022-10-14 04:14] LABS: TOT PROT 6.7 g/dl (6.4-8.2)
[2022-10-14 04:15] LABS: BILIRUBIN,TOTAL 0.4 mg/dL (0.2-1)
[2022-10-14] MEDS ORDERED: LIDOCAINE 5% TOPICAL PATCH TP ONE (06:08)
[2022-10-14] MEDS ORDERED: LIDOCAINE 5% TOPICAL PATCH ONE (06:13)
[2022-10-14] MEDS ORDERED: FAMOTIDINE 40 MG TABLET PO SCH (10:00)
[2022-10-14] MEDS ORDERED: LOSARTAN POTASSIUM 25 MG TABLET ONE (11:00)
[2022-10-14] MEDS ORDERED: HYDROCHLOROTHIAZIDE 25 MG TABLET (FP) ONE (11:00)
[2022-10-14] MEDS ORDERED: ENOXAPARIN NA (PORCINE) 40 MG/0.4 ML DISP.SYRIN SQ ONE (11:00)
[2022-10-14] MEDS: HYDROCHLOROTHIAZIDE 25 MG TABLET (FP) PO SCH (11:28)
[2022-10-14] MEDS: ENOXAPARIN NA (PORCINE) 40 MG/0.4 ML DISP.SYRIN SQ SCH (11:28)
[2022-10-14] MEDS: LOSARTAN POTASSIUM 25 MG TABLET PO SCH (11:28)
[2022-10-14] MEDS ORDERED: FAMOTIDINE 20 MG TABLET PO ONE (15:45)
[2022-10-14] MEDS ORDERED: FAMOTIDINE 20 MG TABLET ONE (16:16)
[2022-10-14] MEDS: ACETAMINOPHEN 500 MG TABLET (FP) PO PRN ×2 (17:52→21:56)
[2022-10-14] MEDS ORDERED: ACETAMINOPHEN 500 MG TABLET (FP) ONE (17:57)
[2022-10-14] MEDS ORDERED: LIDOCAINE PATCH REMOVAL MC SCH (22:00)
[2022-10-14] MEDS ORDERED: ATORVASTATIN CA 40 MG TABLET (FP) PO SCH (22:00)
[2022-10-15 08:14] LABS: HEMATOCRIT 44.2 % (35.4-49); MCH 30.2 pg (25.7-33.7); MEAN CELL VOLUME 88.9 fl (80-96); MEAN PLT VOLUME 8.4 fl (7.5-11.1); PLATELET COUNT 275 10^3/uL (134-434); RBC 4.98 M/mm3 (4.00-5.60); WHITE BLOOD COUNT 7.4 K/mm3 (4.0-10.0)
[2022-10-15 08:38] LABS: CALCIUM 9.4 mg/dL (8.5-10.1)
[2022-10-15 08:39] LABS: MAGNESIUM 2.5 mg/dL (1.8-2.4)
[2022-10-15 08:42] LABS: CREATININE 1.1 mg/dL (0.55-1.3); PHOSPHOROUS 4.2 mg/dL (2.5-4.9)
[2022-10-15] MEDS ORDERED: REGADENOSON 0.4 MG/5 ML PRE-FILLED SYRINGE IVPUSH ONE ×2 (09:57→13:45)
[2022-10-15] MEDS ORDERED: ASPIRIN COATED 81 MG TABLET.EC PO SCH (10:00)
[2022-10-15] MEDS ORDERED: PANTOPRAZOLE 40 MG TABLET PO SCH (10:00)
[2022-10-15] MEDS: ENOXAPARIN NA (PORCINE) 40 MG/0.4 ML DISP.SYRIN SQ SCH (13:30)
[2022-10-15] MEDS: HYDROCHLOROTHIAZIDE 25 MG TABLET (FP) PO SCH (13:30)
[2022-10-15] MEDS: LOSARTAN POTASSIUM 25 MG TABLET PO SCH (13:30)
[2022-10-15 13:40] VITALS: RESP 20
[2022-10-15 14:55] VITALS: BP 125/76; PULSE 83; TEMP 98
== END 2022-10-15 18:23 | disposition home or self-care (01) ==
LOC: JER 01:41 → JERBED 04:45 → J4S 20:28
PROVIDERS: ADMIT Internal Medicine; ATTEND Internal Medicine
PROC: 3E033NZ Introduction of Analgesics, Hypnotics, Sedatives into Peripheral Vein, Percutaneous Approach (ICD-10-PCS; principal; 2022-10-14)
PROC: 3E023GC Introduction of Other Therapeutic Substance into Muscle, Percutaneous Approach (ICD-10-PCS; 2022-10-14)
PROC: 3E033GC Introduction of Other Therapeutic Substance into Peripheral Vein, Percutaneous Approach (ICD-10-PCS; 2022-10-14)
DX: I25.10 Atherosclerotic heart disease of native coronary artery without angina pectoris (principal); I10 Essential (primary) hypertension; K21.9 Gastro-esophageal reflux disease without esophagitis; Z87.891 Personal history of nicotine dependence; E66.8 Other obesity; Z68.33 Body mass index [BMI] 33.0-33.9, adult; R07.9 Chest pain, unspecified; J45.909 Unspecified asthma, uncomplicated; T14.8XXA Other injury of unspecified body region, initial encounter; Z88.2 Allergy status to sulfonamides; Y99.8 Other external cause status
CPT/HCPCS: 36415; 71045-TC-FY; 71275-TC; 78452-TC; 80048; 80053; 83735; 83880; 84100; 84443; 84484; 85025; 85027; 85379; 93005; 93010; 93017; 93306-TC; 96365; 96372; 96375; 99285-25; A9502; C9803-CS; G0378; J2785; Q9967; U0003; U0005

== ENCOUNTER 2023-06-15 18:29 | Observation (INO) | payer OTHER ==
[2023-06-15] MEDS ORDERED: FAMOTIDINE 20 MG/50 ML IVPB 20 MG/50 ML MG IVPB ONE ×2 (19:12→19:26)
[2023-06-15] MEDS ORDERED: SODIUM CHLORIDE 0.9% 500 ML INFUS.BAG IV ONE ×2 (19:12→23:42)
[2023-06-15 19:49] LABS: BASO % 0.3 % (0-2.0); EOS % 0.4 % (0-4.5); HEMATOCRIT 41.2 % (35.4-49); HEMOGLOBIN 13.7 GM/dL (11.7-16.9); LYMPH % 4.3 % (8-40); MCH 27.9 pg (25.7-33.7); MCHC 33.3 g/dl (32.0-35.9); MEAN CELL VOLUME 83.9 fl (80-96); MEAN PLT VOLUME 8.7 fl (7.5-11.1); MONO % 5.8 % (3.8-10.2); NEUT % 89.2 % (42.8-82.8); PLATELET COUNT 274 10^3/uL (134-434); RBC 4.91 M/mm3 (4.00-5.60); RDW 14.9 % (11.9-15.9); WHITE BLOOD COUNT 9.9 K/mm3 (4.0-10.0)
[2023-06-15 20:16] LABS: POTASSIUM 3.7 mmol/L (3.5-5.1)
[2023-06-15 20:18] LABS: ALBUMIN 3.7 g/dl (3.4-5.0); CALCIUM 8.7 mg/dL (8.5-10.1)
[2023-06-15 20:21] LABS: CREATININE 1.3 mg/dL (0.55-1.3)
[2023-06-15 20:24] LABS: BILIRUBIN,TOTAL 0.7 mg/dL (0.2-1)
[2023-06-15] MEDS ORDERED: ACETAMINOPHEN 1000 MG/100 ML BAG IVPB ONE (22:49)
[2023-06-15] MEDS ORDERED: ACETAMINOPHEN INJECTION 100 ML IVPB ONE (22:50)
[2023-06-15 22:57] LABS: URINE APPEARANCE CLEAR; URINE BILIRUBIN NEGATIVE (NEGATIVE); URINE COLOR YELLOW; URINE GLUCOSE (UA) NEGATIVE (NEGATIVE); URINE KETONE NEGATIVE (NEGATIVE); URINE LEUK ESTERASE NEGATIVE (NEGATIVE); URINE NITRITE NEGATIVE (NEGATIVE); URINE PROTEIN NEGATIVE (NEGATIVE); URINE UROBILINOGEN 0.2 mg/dL (0.2-1.0)
[2023-06-16] MEDS ORDERED: CIPROFLOXACIN 400 MG/D5W 400 MG/200 ML IVPB IVPB ONE (00:23)
[2023-06-16] MEDS: SODIUM CHLORIDE 1,000 ML IV SCH (04:55)
[2023-06-16] MEDS ORDERED: HEPARIN NA (PORCINE) 5,000 UNITS/ML 1ML VIAL ONE ×2 (06:18→14:01)
[2023-06-16] MEDS: HEPARIN NA (PORCINE) 5,000 UNITS/ML 1ML VIAL SQ SCH ×3 (06:27→21:32)
[2023-06-16 06:29] LABS: HEMATOCRIT 39.5 % (35.4-49); HEMOGLOBIN 12.7 GM/dL (11.7-16.9); MCH 27.5 pg (25.7-33.7); MCHC 32.1 g/dl (32.0-35.9); MEAN CELL VOLUME 85.8 fl (80-96); PLATELET COUNT 248 10^3/uL (134-434); RBC 4.61 M/mm3 (4.00-5.60); RDW 14.7 % (11.9-15.9); WHITE BLOOD COUNT 11.4 K/mm3 (4.0-10.0)
[2023-06-16] MEDS ORDERED: ALBUTEROL SO4 HFA INHALER IH PRN (06:43)
[2023-06-16 06:46] LABS: POTASSIUM 3.4 mmol/L (3.5-5.1)
[2023-06-16 06:48] LABS: CALCIUM 7.6 mg/dL (8.5-10.1)
[2023-06-16 06:49] LABS: ALBUMIN 3.1 g/dl (3.4-5.0); BLOOD UREA NITROGEN 15.6 mg/dL (7-18); MAGNESIUM 1.5 mg/dL (1.8-2.4)
[2023-06-16 06:51] LABS: CREATININE 1.1 mg/dL (0.55-1.3); PHOSPHOROUS 2.5 mg/dL (2.5-4.9)
[2023-06-16 06:53] LABS: BILIRUBIN,TOTAL 0.9 mg/dL (0.2-1)
[2023-06-16] MEDS ORDERED: FAMOTIDINE 40 MG TABLET PO SCH (10:00)
[2023-06-16] MEDS: ASPIRIN 81 MG CHEWABLE TABLETS PO SCH (10:47)
[2023-06-16] MEDS: PANTOPRAZOLE 40 MG TABLET PO SCH ×2 (10:48→21:32)
[2023-06-16] MEDS: ACETAMINOPHEN 325 MG TABLET (FP) PO PRN ×2 (13:35→21:32)
[2023-06-16] MEDS ORDERED: MAGNESIUM 1GM/D5W 100ML - 100 ML IVPB IVPB ONE (13:56)
[2023-06-16] MEDS ORDERED: KCL 10 MEQ IVPB 10 MEQ/100 ML INFUS.BAG IVPB SCH (14:00)
[2023-06-16] MEDS ORDERED: ATORVASTATIN CA 40 MG TABLET (FP) PO SCH (22:00)
[2023-06-16 22:27] VITALS: BMI 36.0
[2023-06-17] MEDS: SODIUM CHLORIDE 1,000 ML IV SCH (01:13)
[2023-06-17] MEDS: HEPARIN NA (PORCINE) 5,000 UNITS/ML 1ML VIAL SQ SCH ×2 (06:36→14:22)
[2023-06-17 08:14] LABS: POTASSIUM 3.5 mmol/L (3.5-5.1)
[2023-06-17 08:21] LABS: BLOOD UREA NITROGEN 11.2 mg/dL (7-18); CALCIUM 7.8 mg/dL (8.5-10.1); MAGNESIUM 2.4 mg/dL (1.8-2.4)
[2023-06-17 08:24] LABS: CREATININE 0.9 mg/dL (0.55-1.3)
[2023-06-17] MEDS: PANTOPRAZOLE 40 MG TABLET PO SCH (09:39)
[2023-06-17] MEDS: ASPIRIN 81 MG CHEWABLE TABLETS PO SCH (09:39)
[2023-06-17 10:19] VITALS: RESP 18
[2023-06-17 14:40] VITALS: BP 144/93; PULSE 80; TEMP 98
== END 2023-06-17 14:49 | disposition home or self-care (01) ==
LOC: JER 18:29 → JERBED 06-16 00:11 → J4W 06-16 20:39
PROVIDERS: ADMIT Internal Medicine; ATTEND Internal Medicine
PROC: 3E023GC Introduction of Other Therapeutic Substance into Muscle, Percutaneous Approach (ICD-10-PCS; principal; 2023-06-16)
PROC: 3E033NZ Introduction of Analgesics, Hypnotics, Sedatives into Peripheral Vein, Percutaneous Approach (ICD-10-PCS; 2023-06-16)
PROC: 3E03329 Introduction of Other Anti-infective into Peripheral Vein, Percutaneous Approach (ICD-10-PCS; 2023-06-16)
PROC: 3E033GC Introduction of Other Therapeutic Substance into Peripheral Vein, Percutaneous Approach (ICD-10-PCS; 2023-06-16)
PROC: 3E0337Z Introduction of Electrolytic and Water Balance Substance into Peripheral Vein, Percutaneous Approach (ICD-10-PCS; 2023-06-16)
DX: A09 Infectious gastroenteritis and colitis, unspecified (principal); R00.0 Tachycardia, unspecified; R50.9 Fever, unspecified; I10 Essential (primary) hypertension; K21.9 Gastro-esophageal reflux disease without esophagitis; G47.33 Obstructive sleep apnea (adult) (pediatric); E83.42 Hypomagnesemia; Z96.642 Presence of left artificial hip joint; E66.01 Morbid (severe) obesity due to excess calories; Z29.89 Encounter for other specified prophylactic measures; Z88.2 Allergy status to sulfonamides
CPT/HCPCS: 0241U-QW; 36415; 74177-TC; 80048; 80053; 81003; 83605; 83735; 84100; 85025; 85027; 86140; 87040; 87045; 87046; 87086; 87324; 87449; 93005; 93010; 96365; 96367; 96368; 96372; 96375; 99285-25; G0378; J1644; Q9967

== ENCOUNTER 2023-07-30 10:56 | Emergency (ER) | payer OTHER ==
[2023-07-30 11:03] VITALS: BMI 34.9
[2023-07-30] MEDS ORDERED: LIDOCAINE 5% TOPICAL PATCH TP ONE (11:40)
[2023-07-30] MEDS ORDERED: ACETAMINOPHEN 1000 MG/100 ML BAG IVPB ONE (11:40)
[2023-07-30] MEDS ORDERED: SODIUM CHLORIDE 0.9% 500 ML INFUS.BAG IV ONE (11:41)
[2023-07-30] MEDS ORDERED: ACETAMINOPHEN INJECTION 100 ML IVPB ONE (12:10)
[2023-07-30] MEDS ORDERED: LIDOCAINE 4% PATCH TP ONE (12:10)
[2023-07-30 12:44] LABS: PH,URINE 5.5 (5.0-8.0); URINE APPEARANCE CLEAR; URINE BILIRUBIN NEGATIVE (NEGATIVE); URINE COLOR YELLOW; URINE GLUCOSE (UA) NEGATIVE (NEGATIVE); URINE KETONE NEGATIVE (NEGATIVE); URINE LEUK ESTERASE NEGATIVE (NEGATIVE); URINE NITRITE NEGATIVE (NEGATIVE); URINE PROTEIN NEGATIVE (NEGATIVE); URINE UROBILINOGEN 0.2 mg/dL (0.2-1.0)
[2023-07-30 12:49] LABS: POTASSIUM 4.8 mmol/L (3.5-5.1)
[2023-07-30 12:55] LABS: ALBUMIN 3.8 g/dl (3.4-5.0); BASO % 0.4 % (0-2.0); CALCIUM 9.4 mg/dL (8.5-10.1); EOS % 1.4 % (0-4.5); HEMATOCRIT 46.7 % (35.4-49); HEMOGLOBIN 15.1 GM/dL (11.7-16.9); LYMPH % 19.5 % (8-40); MCH 27.3 pg (25.7-33.7); MCHC 32.3 g/dl (32.0-35.9); MEAN CELL VOLUME 84.7 fl (80-96); MEAN PLT VOLUME 8.9 fl (7.5-11.1); MONO % 9.6 % (3.8-10.2); NEUT % 69.1 % (42.8-82.8); PLATELET COUNT 302 10^3/uL (134-434); RBC 5.51 M/mm3 (4.00-5.60); RDW 15.6 % (11.9-15.9); WHITE BLOOD COUNT 6.6 K/mm3 (4.0-10.0)
[2023-07-30 12:56] LABS: BLOOD UREA NITROGEN 22.1 mg/dL (7-18)
[2023-07-30 12:59] LABS: CREATININE 1.3 mg/dL (0.55-1.3)
[2023-07-30 13:00] LABS: BILIRUBIN,TOTAL 0.5 mg/dL (0.2-1); TOT PROT 7.5 g/dl (6.4-8.2)
[2023-07-30] MEDS ORDERED: KETOROLAC TROMETHAMINE 15 MG/ML VIAL IVPUSH ONE (14:36)
[2023-07-30] MEDS ORDERED: METHOCARBAMOL 500 MG TABLET PO ONE (14:39)
[2023-07-30] MEDS ORDERED: METHOCARBAMOL 500 MG TABLET ONE (14:56)
[2023-07-30] MEDS ORDERED: KETOROLAC TROMETHAMINE 15 MG/ML VIAL ONE (14:56)
[2023-07-30 15:22] VITALS: BP 137/87; PULSE 77; RESP 20; TEMP 97.6
[2023-07-30] MEDS ORDERED: LIDOCAINE PATCH REMOVAL MC SCH (22:00)
== END 2023-07-30 16:18 | disposition home or self-care (01) ==
LOC: JER 10:56
PROC: 3E033NZ Introduction of Analgesics, Hypnotics, Sedatives into Peripheral Vein, Percutaneous Approach (ICD-10-PCS; principal; 2023-07-30)
PROC: 3E033GC Introduction of Other Therapeutic Substance into Peripheral Vein, Percutaneous Approach (ICD-10-PCS; 2023-07-30)
DX: R10.9 Unspecified abdominal pain (principal); R07.89 Other chest pain; R50.9 Fever, unspecified
CPT/HCPCS: 36415; 71045-TC-FY; 74177-TC; 80053; 81003; 84484; 85025; 87086; 93005; 93010; 99285-25; Q9967

== ENCOUNTER 2023-08-05 00:38 | Emergency (ER) | payer OTHER ==
[2023-08-05 01:01] VITALS: BP 142/78; PULSE 86; RESP 20; TEMP 97.6; BMI 34.9
[2023-08-05] MEDS ORDERED: KETOROLAC TROMETHAMINE 30 MG/1 ML VIAL IM ONE (03:26)
[2023-08-05] MEDS ORDERED: KETOROLAC TROMETHAMINE 30 MG/1 ML VIAL ONE (03:35)
[2023-08-05] MEDS ORDERED: oxyCODONE HCL 5 MG TABLET PO ONE (04:37)
[2023-08-05] MEDS ORDERED: ACETAMINOPHEN 500 MG TABLET (FP) PO ONE (04:38)
[2023-08-05] MEDS ORDERED: ACETAMINOPHEN 325 MG TABLET (FP) ONE (04:43)
[2023-08-05] MEDS ORDERED: oxyCODONE HCL 5 MG TABLET ONE (04:43)
== END 2023-08-05 05:36 | disposition home or self-care (01) ==
LOC: JER 00:38
PROC: 3E0233Z Introduction of Anti-inflammatory into Muscle, Percutaneous Approach (ICD-10-PCS; principal; 2023-08-05)
DX: K08.89 Other specified disorders of teeth and supporting structures (principal)
CPT/HCPCS: 96372; 99284-25

== ENCOUNTER 2024-01-05 13:17 | Emergency (ER) | payer OTHER ==
[2024-01-05 13:24] VITALS: BP 126/76; PULSE 76; RESP 18; TEMP 98; BMI 34.9
[2024-01-05] MEDS: CYCLOBENZAPRINE HCL 10 MG TABLET (FP) PO ONE (15:00)
[2024-01-05] MEDS: LIDOCAINE 4% PATCH TP ONE (15:00)
[2024-01-05] MEDS ORDERED: LIDOCAINE 4% PATCH TP ONE (15:07)
[2024-01-05] MEDS ORDERED: IBUPROFEN 400 MG TABLET (FP) PO ONE (15:07)
[2024-01-05] MEDS ORDERED: CYCLOBENZAPRINE HCL 10 MG TABLET (FP) ONE (15:07)
[2024-01-05] MEDS: IBUPROFEN 400 MG TABLET (FP) PO ONE (15:13)
[2024-01-05] MEDS ORDERED: BACITRACIN ZINC 15 GM TUBE TOPICAL OINTMENT TP ONE (15:30)
[2024-01-05] MEDS ORDERED: BACITRACIN ZINC 15 GM TUBE TOPICAL OINTMENT ONE (15:31)
[2024-01-05] MEDS ORDERED: LIDOCAINE PATCH REMOVAL MC SCH (22:00)
== END 2024-01-05 15:41 | disposition home or self-care (01) ==
LOC: JERFT 13:17
DX: S40.812A Abrasion of left upper arm, initial encounter (principal); S50.812A Abrasion of left forearm, initial encounter; R07.81 Pleurodynia; W11.XXXA Fall on and from ladder, initial encounter
CPT/HCPCS: 71046-TC-FY; 71101-TC-LT-FY; 73030-TC-LT-FY; 99284-25

== ENCOUNTER 2025-02-03 13:17 | Emergency (ER) | payer OTHER ==
[2025-02-03 13:26] VITALS: TEMP 98.4; BMI 36.9
[2025-02-03] MEDS ORDERED: ACETAMINOPHEN 500 MG TABLET (FP) ONE (13:47)
[2025-02-03] MEDS ORDERED: ALBUTEROL SO4 2.5/IPRATROPIUM 0.5 INH SOL 3 ML VIAL.NEB. NEB ONE (13:47)
[2025-02-03] MEDS: ACETAMINOPHEN 500 MG TABLET (FP) PO ONE (13:49)
[2025-02-03] MEDS: ALBUTEROL SO4 2.5/IPRATROPIUM 0.5 INH SOL 3 ML VIAL.NEB. NEB ONE (14:11)
[2025-02-03 14:59] LABS: ABSOLUTE IMMATURE GRANULOCYTES 0.01 x10^3/uL (0.0-0.031); BASOPHILS # 0.02 x10^3/uL (0.01-0.08); EOSINOPHIL % 1.6 % (0.8-7.0); EOSINOPHILS # 0.12 x10^3/uL (0.04-0.54); MCHC 32.3 g/dl (32.3-36.5); MEAN CELL VOLUME 93.7 fl (79.0-92.2); MEAN PLT VOLUME 11.4 fl (9.4-12.4); MONOCYTE # 0.85 x10^3/uL (0.30-0.82); MONOCYTE % 11.0 % (5.3-12.2); RDW 13.4 % (12.2-16.1)
[2025-02-03 15:51] LABS: GLUCOSE,RANDOM 107.0 mg/dL (74-106)
[2025-02-03 15:52] LABS: CO2 28.0 mmol/L (21-32)
[2025-02-03 15:55] LABS: CREATININE 1.1 mg/dL (0.55-1.3); SGOT/AST 24.0 U/L (15-37); SGPT/ALT 31.0 U/L (13-61)
[2025-02-03 15:57] LABS: TOT PROT 7.4 g/dl (6.4-8.2)
[2025-02-03 16:02] LABS: ALK PHOS 86.0 U/L (45-117)
[2025-02-03 16:18] VITALS: BP 143/89; PULSE 67; RESP 18
[2025-02-03 16:43] LABS: HCV DIAGNOSTIC IN-HOUSE W/RFLX NON-REACTIVE (NONREACTIVE)
[2025-02-03 16:44] LABS: HIV INTERPRETATION NEGATIVE (NEGATIVE)
== END 2025-02-03 16:00 | disposition home or self-care (01) ==
LOC: JER 13:17
PROC: 3E0F7GC Introduction of Other Therapeutic Substance into Respiratory Tract, Via Natural or Artificial Opening (ICD-10-PCS; principal; 2025-02-03)
DX: R05.9 Cough, unspecified (principal); R06.2 Wheezing
CPT/HCPCS: 36415; 71046-TC-FY; 80053; 84484; 85025; 86803; 87389; 87637-QW; 93005; 93010; 94640; 99285-25